=== PATIENT | male | born 1950 | race Caucasian/White ===

== ENCOUNTER 2023-05-02 06:19 | Day surgery (SDC) | payer MEDICARE, OTHER, SELFPAY ==
--- NOTE | 2023-04-30 12:11 | PTCARENOTE ---
Patients 04/07 EKG abnormal- reviewed by Dr. Houser- no additional interventions required
[2023-05-02] VITALS (8 sets, daily range): BP systolic 120–135; BP diastolic 64–72; BMI 29.2
[2023-05-02] MEDS: NORMOSOL-R 1000 IV (08:32)
[2023-05-02] MEDS: Pyridium 200 MG PO (12:24)
[2023-05-08 11:19] LABS: Stone Analysis Mass 12 mg
== END 2023-05-02 13:19 | disposition home or self-care (01) ==
LOC: SDS 06:19
PROVIDERS: Specialist; ATTENDING PHYSICIAN Specialist
DX: N20.2 Calculus of kidney with calculus of ureter (principal); Q62.10 Congenital occlusion of ureter, unspecified
CPT/HCPCS: 52356; 74018; 76000; 82365; C1894; C2617

== ENCOUNTER 2023-10-21 11:51 | Inpatient (IN) | payer MEDICARE, OTHER, SELFPAY ==
[2023-10-19 15:49] VITALS: BP 151/88
[2023-10-19 16:19] LABS: % Basophils 0.9 % (0-2); % Eosinophils 5.4 % (0-6); % Immature Granulocytes 0.5 % (0-0.5); % Lymphocytes 16.4 % (20.5-51.1); % Monocytes 13.4 % (1.7-9.3); % Neutrophils 63.4 % (42.2-75.2); Absolute Basophils 0.1 10^3/uL (0-0.2); Absolute Eosinophils 0.4 10^3/uL (0-0.7); Absolute Lymphocytes 1.1 10^3/uL (1.2-3.4); Absolute Monocytes 0.9 10^3/uL (0.1-0.6); Absolute Neutrophils 4.2 10^3/uL (1.4-6.5); Hematocrit 40.6 % (39.0-52.0); Hemoglobin 13.9 g/dL (13.0-18.0); Mean Corp Hgb Conc. 34.2 g/dL (33.0-37.0); Mean Corpuscular Hgb 30.7 pg (27.0-31.0); Mean Corpuscular Volume 89.6 fL (80.0-94.0); Mean Platelet Volume 9.6 fL (7.4-10.4); Nucleated Red Blood Cells % 0 % (-); Platelet Count 127 10^3/uL (130-400); Red Blood Cell Count 4.53 10^6/uL (4.70-6.10); Red Cell Dist. Width 12.1 % (11.5-14.5); White Blood Cell Count 6.6 10^3/uL (4.8-10.8)
[2023-10-19 16:26] LABS: ALT (SGPT) 64 U/L (0-50); APTT 31.1 Sec (23.4-35.0); AST (SGOT) 61 U/L (17-59); Albumin 4.1 g/dl (3.5-5.0); Alkaline Phosphatase 71 U/L (38-126); Blood Urea Nitrogen 21 mg/dl (9-20); Calcium 8.8 mg/dl (8.4-10.2); Carbon Dioxide 26 mmol/L (22-30); Chloride 106 mmol/L (98-107); Glucose 108 mg/dl (70-99); Potassium 4.4 mmol/L (3.5-5.1); Sodium 138 mmol/L (135-145); Total Bilirubin 1.4 mg/dl (0.2-1.3); Total Protein 7.3 g/dl (6.3-8.2); eGFR > 60.00
[2023-10-19 16:35] LABS: COVID-19 Antigen Negative (Negative)
[2023-10-19 16:38] LABS: NT-proBNP 846 pg/ml; Troponin I 0.026 ng/ml
--- NOTE | 2023-10-19 17:45 | ED.GENMED ---
History of Present Illness
<Dank West DO, Resident - Last Filed: 10/19/23 21:41>
General
Chief Complaint: Breathing Problem
Source: patient and significant other
Time Seen by Provider: 10/19/23 17:34
History of Present Illness
History of Present Illness:
Patient is a 73-year-old male the ED with 3 days of breath. He states this the shortness of breath lasted from Sunday until . He states he had checked his Apple Watch and his oxygenation dropped to 88%. He was having sensations that the
left side of his lungs were not feeling completely and that there was pain with deep inspiration. He reports no headaches, nausea, vomiting, diarrhea, chest pain, shortness of breath, abdominal pain, numbness or tingling currently. He woke up this
morning feeling good however his family doctor told him to come to the ER to rule out any pulmonary embolism.
Past History
<Dank West DO, Resident - Last Filed: 10/19/23 21:41>
Social History
Tobacco: Non-smoker
Personal:
Employment: Employed
Review of Systems
<Dank West DO, Resident - Last Filed: 10/19/23 21:41>
Review of Systems
Constitutional: Reports no symptoms
EENT: Reports no symptoms
Respiratory: Reports trouble breathing (now resolved)
Cardiac: Reports no symptoms
ABD/GI: Reports no symptoms
: Reports no symptoms
Musculoskeletal: Reports other (mild shoulder and left side pain)
Skin: Reports no symptoms
Neurological: Denies no symptoms
Endocrine: Reports no symptoms
Hematologic/Lymphatic: Reports no symptoms
Psychiatric: Reports no symptoms
Phy Exam
<Dank West DO, Resident - Last Filed: 10/19/23 21:41>
General Physical Exam
General Presentation: well appearing and no apparent distress
General age: appears stated age
General Skin: warm and dry
General Habitus: normal
General Mental: alert
General Hydration: appears well hydrated
Cardiovascular Exam
Cardiovascular Exam: regular rate/rhythm, no edema, no gallop, no JVD, no murmur and normal peripheral pulses
Pulmonary Exam
Pulmonary Exam: lungs clear, no respiratory distress, no rales, chest non tender, no crackles, no rhonchi, no stridor, no wheezing and no cough
Gastrointestinal Exam
Gastrointestinal Exam: normal bowel sounds, non tender, soft and non distended
Musculoskeletal Exam
Musculoskeletal Exam: full ROM
Skin Exam
Skin Exam: normal color and warm/dry
Scores
<Dank West DO, Resident - Last Filed: 10/19/23 21:41>
Heart Failure Risk
Heart Failure Risk Score: Not Applicable
Course
<Dank West DO, Resident - Last Filed: 10/19/23 21:41>
Orders/Labs/Results
Orders:
Orders
10/19/23 Dinner
Regular
10/19/23 15:55
ECG [Electrocardiogram (*1)] Urgent
Reason for Study: Shortness of Breath
Other Reason for Exam: Pleuritic chest pain
10/19/23 15:56
EKG- Treatment ONCE
10/19/23 16:08
COVID-19 Antigen Urgent
Source: Nasal Swab
Complete Blood Count/With Diff Urgent
Comprehensive Metabolic Panel Urgent
NT-proBNP Urgent
PT/INR [Prothrombin Time] Urgent
PTT Urgent
Troponin I Urgent
10/19/23 17:57
CT Chest Pe Study Urgent
Comment:
Reason For Exam: chest pain
10/19/23 19:27
Heparin 10,000 units IV NOW STA
10/19/23 19:[address] Non Medication Order As Directed
Physician Order: PTT 6 hours after initial start of Heparin infusion
Above order entered?: Yes
10/19/23 19:30
Heparin 61368 Units/250 ml 25,000 units in 250 ml IV PER PROTOCOL
Weight to be used for heparin protocol in kilograms (kg):: 93
Protocol:: DVT/PE
PTT Goal Range to be used:: PTT 73 to 111 seconds
Order type:: Initial
INITIAL Infusion Dose (UNITS/KG/hr) & then follow protocol:: 18 units/kg/hr
Infusion Dose in UNITS/hr & then follow protocol (UNITS/hr):: 1,700
INFUSION RATE in mL/hr & then follow protocol (mL/hr):: 17
For DVT/PE algorithm, re-bolus for low PTT?: Yes
PTT less than or equal to 64 seconds:: Re-bolus 80 units/kg (max 10,000units). Increase by 400 units/hr
(+ 4mL/hr)
PTT 64.1 to 72.9 seconds:: Re-bolus 40 units/kg (max 5,000 units). Increase by 200 units/hr
(+ 2mL/hr)
PTT 73 to 111 seconds:: Target Range. No change in rate.
PTT 111.1 to 130.9 seconds:: Decrease rate by 200 units/hr (- 2 mL/hr)
PTT 131 to 199.9 seconds:: HOLD for 1 hr. Then decrease by 300 units/hr (- 3mL/hr)
PTT greater than or equal to 200 seconds:: HOLD for 2 hrs & Notify Provider. Then decrease by 400 units/hr
(- 4mL/hr)
Lab follow-up:: Each change, PTT q6h until 2 consecutive are therapeutic. Then
PTT daily.
10/19/23 19:51
Heparin 7,400 units IV PRN PRN
10/19/23 19:52
Heparin 3,700 units IV PRN PRN
10/19/23 20:12
Admit/Transfer Patient As Directed
Co-Sign Provider:
Level of Care: Observation services
Assign to:: Telemetry
Physician / Group: rogerio
Diagnosis: pulmonary embolism
Reason for Telemetry: Arrhythmia
Date to Stop Telemetry: 10/22/23
Time to Stop Telemetry: 11:00
10/19/23 20:13
Code Status As Directed
Resuscitation Status: Full Code
10/19/23 21:17
diphenhydramine-acetaminophen [Tylenol PM Extra Strength] 1 tablet PO HSPRN PRN
10/19/23 21:17
Echo 2D MMode Color/Doppler Routine
Reason for Study: RV strain
VTE Contraindication Routine
VTE Mechanical Device Contraindication: Medical Contraindication
Pharmocologic Contraindication: Medical Contraindication
Heparin Protocol- PTT Orders As Directed
PTT per Heparin protocol: -Obtain CBC and baseline PTT - if not already collected.
-Obtain PTT 6 hours from start of infusion. Then, every 6 hours until 2 consecutive
PTT's are therapeutic. Then, PTT Daily.
-With each rate change, obtain PTT every 6 hours until 2 consecutive PTT's are
therapeutic. Then, PTT Daily.
Activity As Directed
Activity Level: As Tolerated
Notify MD As Directed
Notify physician if: PTT is greater than or equal to 200.
Vital Signs As Directed
Frequency: Per unit guidelines
Venous Doppler Lwr Ext Bilat [US Periph Venous LOWER Ext Bebeto] Routine
Comment:
Reason For Exam: DVT
10/19/23 21:28
Troponin I Q6H
10/19/23 22:00
Atorvastatin [Lipitor] 10 mg PO HS
10/20/23 02:10
PTT Urgent
10/20/23 03:17
Troponin I Q6H
10/20/23 06:00
Complete Blood Count/No Diff IN AM
Comprehensive Metabolic Panel IN AM
10/20/23 08:00
Ascorbic Acid [Vitamin C] 500 mg PO DAILY
omega-3 fatty acids-fish oil 1 ea PO DAILY
10/20/23 09:17
Troponin I Q6H
10/21/23 06:00
Complete Blood Count/No Diff Q2D
Comment: notify provider: Platelet count < 130,000 or decrease by 50% from baseline
10/22/23 11:00
DC Protocol for Telemetry ONCE
10/23/23 06:00
Complete Blood Count/No Diff Q2D
Comment: notify provider: Platelet count < 130,000 or decrease by 50% from baseline
10/25/23 06:00
Complete Blood Count/No Diff Q2D
Comment: notify provider: Platelet count < 130,000 or decrease by 50% from baseline
10/27/23 06:00
Complete Blood Count/No Diff Q2D
Comment: notify provider: Platelet count < 130,000 or decrease by 50% from baseline
10/29/23 06:00
Complete Blood Count/No Diff Q2D
Comment: notify provider: Platelet count < 130,000 or decrease by 50% from baseline
10/31/23 06:00
Complete Blood Count/No Diff Q2D
Comment: notify provider: Platelet count < 130,000 or decrease by 50% from baseline
11/02/23 06:00
Complete Blood Count/No Diff Q2D
Comment: notify provider: Platelet count < 130,000 or decrease by 50% from baseline
11/04/23 06:00
Complete Blood Count/No Diff Q2D
Comment: notify provider: Platelet count < 130,000 or decrease by 50% from baseline
Abnormal Lab Results
10/19/23
16:08
RBC 4.53 L 10^6/uL
(4.70-6.10)
Plt Count 127 L 10^3/uL
(130-400)
Absolute Lymphs (auto) 1.1 L 10^3/uL
(1.2-3.4)
Absolute Monos (auto) 0.9 H 10^3/uL
(0.1-0.6)
Lymphocytes % 16.4 L %
(20.5-51.1)
Monocytes % 13.4 H %
(1.7-9.3)
PT 15.0 H Sec
(11.4-14.6)
BUN 21 H mg/dl
(9-20)
Glucose 108 H mg/dl
(70-99)
Total Bilirubin 1.4 H mg/dl
(0.2-1.3)
AST 61 H U/L
(17-59)
ALT 64 H U/L
(0-50)
10/19/23 16:08
10/19/23 16:08
Vital Signs
Initial and Last Documented VS:
Initial Vital Signs
Temp Pulse Resp BP Pulse Ox
98.9 F 50 20 151/88 98
10/19/23 15:49 10/19/23 15:49 10/19/23 15:49 10/19/23 15:49 10/19/23 15:49
Last Documented Vital Signs
Temp Pulse Resp BP Pulse Ox
98.9 F 51 22 149/79 95
10/19/23 15:49 10/19/23 20:00 10/19/23 20:00 10/19/23 19:46 10/19/23 19:46
<Eugenio Herrera, DO - Last Filed: 10/19/23 18:25>
Orders/Labs/Results
Orders:
Orders
10/19/23 Dinner
Regular
10/19/23 15:55
ECG [Electrocardiogram (*1)] Urgent
Reason for Study: Shortness of Breath
Other Reason for Exam: Pleuritic chest pain
10/19/23 15:56
EKG- Treatment ONCE
10/19/23 16:08
COVID-19 Antigen Urgent
Source: Nasal Swab
Complete Blood Count/With Diff Urgent
Comprehensive Metabolic Panel Urgent
NT-proBNP Urgent
PT/INR [Prothrombin Time] Urgent
PTT Urgent
Troponin I Urgent
10/19/23 17:57
CT Chest Pe Study Urgent
Comment:
Reason For Exam: chest pain
10/19/23 19:27
Heparin 10,000 units IV NOW STA
10/19/23 19:[address] Non Medication Order As Directed
Physician Order: PTT 6 hours after initial start of Heparin infusion
Above order entered?: Yes
10/19/23 19:30
Heparin 26485 Units/250 ml 25,000 units in 250 ml IV PER PROTOCOL
Weight to be used for heparin protocol in kilograms (kg):: 93
Protocol:: DVT/PE
PTT Goal Range to be used:: PTT 73 to 111 seconds
Order type:: Initial
INITIAL Infusion Dose (UNITS/KG/hr) & then follow protocol:: 18 units/kg/hr
Infusion Dose in UNITS/hr & then follow protocol (UNITS/hr):: 1,700
INFUSION RATE in mL/hr & then follow protocol (mL/hr):: 17
For DVT/PE algorithm, re-bolus for low PTT?: Yes
PTT less than or equal to 64 seconds:: Re-bolus 80 units/kg (max 10,000units). Increase by 400 units/hr
(+ 4mL/hr)
PTT 64.1 to 72.9 seconds:: Re-bolus 40 units/kg (max 5,000 units). Increase by 200 units/hr
(+ 2mL/hr)
PTT 73 to 111 seconds:: Target Range. No change in rate.
PTT 111.1 to 130.9 seconds:: Decrease rate by 200 units/hr (- 2 mL/hr)
PTT 131 to 199.9 seconds:: HOLD for 1 hr. Then decrease by 300 units/hr (- 3mL/hr)
PTT greater than or equal to 200 seconds:: HOLD for 2 hrs & Notify Provider. Then decrease by 400 units/hr
(- 4mL/hr)
Lab follow-up:: Each change, PTT q6h until 2 consecutive are therapeutic. Then
PTT daily.
10/19/23 19:51
Heparin 7,400 units IV PRN PRN
10/19/23 19:52
Heparin 3,700 units IV PRN PRN
10/19/23 20:12
Admit/Transfer Patient As Directed
Co-Sign Provider:
Level of Care: Observation services
Assign to:: Telemetry
Physician / Group: rogerio
Diagnosis: pulmonary embolism
Reason for Telemetry: Arrhythmia
Date to Stop Telemetry: 10/22/23
Time to Stop Telemetry: 11:00
10/19/23 20:13
Code Status As Directed
Resuscitation Status: Full Code
10/19/23 21:17
diphenhydramine-acetaminophen [Tylenol PM Extra Strength] 1 tablet PO HSPRN PRN
10/19/23 21:17
Echo 2D MMode Color/Doppler Routine
Reason for Study: RV strain
VTE Contraindication Routine
VTE Mechanical Device Contraindication: Medical Contraindication
Pharmocologic Contraindication: Medical Contraindication
Heparin Protocol- PTT Orders As Directed
PTT per Heparin protocol: -Obtain CBC and baseline PTT - if not already collected.
-Obtain PTT 6 hours from start of infusion. Then, every 6 hours until 2 consecutive
PTT's are therapeutic. Then, PTT Daily.
-With each rate change, obtain PTT every 6 hours until 2 consecutive PTT's are
therapeutic. Then, PTT Daily.
Activity As Directed
Activity Level: As Tolerated
Notify MD As Directed
Notify physician if: PTT is greater than or equal to 200.
Vital Signs As Directed
Frequency: Per unit guidelines
Venous Doppler Lwr Ext Bilat [US Periph Venous LOWER Ext Bebeto] Routine
Comment:
Reason For Exam: DVT
10/19/23 21:28
Troponin I Q6H
10/19/23 22:00
Atorvastatin [Lipitor] 10 mg PO HS
10/20/23 02:10
PTT Urgent
10/20/23 03:17
Troponin I Q6H
10/20/23 06:00
Complete Blood Count/No Diff IN AM
Comprehensive Metabolic Panel IN AM
10/20/23 08:00
Ascorbic Acid [Vitamin C] 500 mg PO DAILY
omega-3 fatty acids-fish oil 1 ea PO DAILY
10/20/23 09:17
Troponin I Q6H
10/21/23 06:00
Complete Blood Count/No Diff Q2D
Comment: notify provider: Platelet count < 130,000 or decrease by 50% from baseline
10/22/23 11:00
DC Protocol for Telemetry ONCE
10/23/23 06:00
Complete Blood Count/No Diff Q2D
Comment: notify provider: Platelet count < 130,000 or decrease by 50% from baseline
10/25/23 06:00
Complete Blood Count/No Diff Q2D
Comment: notify provider: Platelet count < 130,000 or decrease by 50% from baseline
10/27/23 06:00
Complete Blood Count/No Diff Q2D
Comment: notify provider: Platelet count < 130,000 or decrease by 50% from baseline
10/29/23 06:00
Complete Blood Count/No Diff Q2D
Comment: notify provider: Platelet count < 130,000 or decrease by 50% from baseline
10/31/23 06:00
Complete Blood Count/No Diff Q2D
Comment: notify provider: Platelet count < 130,000 or decrease by 50% from baseline
11/02/23 06:00
Complete Blood Count/No Diff Q2D
Comment: notify provider: Platelet count < 130,000 or decrease by 50% from baseline
11/04/23 06:00
Complete Blood Count/No Diff Q2D
Comment: notify provider: Platelet count < 130,000 or decrease by 50% from baseline
Abnormal Lab Results
10/19/23
16:08
RBC 4.53 L 10^6/uL
(4.70-6.10)
Plt Count 127 L 10^3/uL
(130-400)
Absolute Lymphs (auto) 1.1 L 10^3/uL
(1.2-3.4)
Absolute Monos (auto) 0.9 H 10^3/uL
(0.1-0.6)
Lymphocytes % 16.4 L %
(20.5-51.1)
Monocytes % 13.4 H %
(1.7-9.3)
PT 15.0 H Sec
(11.4-14.6)
BUN 21 H mg/dl
(9-20)
Glucose 108 H mg/dl
(70-99)
Total Bilirubin 1.4 H mg/dl
(0.2-1.3)
AST 61 H U/L
(17-59)
ALT 64 H U/L
(0-50)
10/19/23 16:08
10/19/23 16:08
Vital Signs
Initial and Last Documented VS:
Initial Vital Signs
Temp Pulse Resp BP Pulse Ox
98.9 F 50 20 151/88 98
10/19/23 15:49 10/19/23 15:49 10/19/23 15:49 10/19/23 15:49 10/19/23 15:49
Last Documented Vital Signs
Temp Pulse Resp BP Pulse Ox
98.9 F 51 22 149/79 95
10/19/23 15:49 10/19/23 20:00 10/19/23 20:00 10/19/23 19:46 10/19/23 19:46
<Dank West DO, Resident - Last Filed: 10/19/23 21:41>
MDM/Problems Addressed
Differential Diagnosis Includes:
Pulmonary embolism
MDM/Problems Addressed:
Patient is a 73-year-old male presenting to the ED with 3 days of shortness of breath and pain with deep inspiration. Today he felt he had no symptoms but CT PE study showed left peripheral pulmonary embolism. He was ordered heparin in the
emergency room and patient was admitted to hospital.
Chronic conditions affecting care:
N/A
Acute Exacerbation and/or Progression of Chronic Illness:
N/A
<Dank West DO, Resident - Last Filed: 10/19/23 21:41>
*Pulse Oximetry
Patient hypoxic: no
*EKG
Interpreted by ED Provider?: Yes
EKG Intrepretation Date: 10/19/23
Interpretation: abnormal
Comparison EKG: changes noted
Rate: bradycardiac
Rhythm: sinus
[place]: normal axis
Interval: first degree heart block
*Critical Care Note
Total Time (30-74mins, 75-104mins- exclusive of procedures): Not Applicable
ED Attending Note
<Dank West DO, Resident - Last Filed: 10/19/23 21:41>
-
Portions of this chart may have been created with voice recognition software.� Occasional wrong word or��sound alike� substitutions may have occurred due to the inherent limitations of voice recognition software.
<Eugenio Herrera DO - Last Filed: 10/19/23 18:25>
ED Attending Note
Patient seen and examined by attending physician: Yes
I performed the substantive portion of visit, reviewed & personally made and approve the management plan that is documented in note by myself or KYLAH.: Yes
ED Attending Note:
I have seen and evaluated the patient with a [id number] encounter. I have spoken to the resident and involved in the medical history, the physical exam, medical decision making.
Evaluation and management service: agree unless noted differently below.
Results interpretation: agree unless noted differently below.
Focused HPI: 73-year-old male presenting with pleuritic chest pain with deep inspiration. He talk to his doctor and was sent in for rule out PE
Physical exam: Sitting bed comfortably. Symptoms worsening since upright. No leg edema. Lungs clear
Medical Decision Making: Given his history and symptoms, will obtain CT to rule out PE. Otherwise, discussed pleuritic pain. Troponin negative
Discharge Plan
Departure
Patient Disposition: Admit
Date of Disposition: 10/19/23
Time of Disposition: 19:35
Presentation/result/management discussed w/ accepting MD/DO: Hospitalist
Patient with high blood pressure during this ER visit?: Yes
Condition: Good
Discharge Problem:
Pulmonary embolism
Interventions
Interventions:
*Risk Screen - Suicide Last Done: 10/19/23 20:05
*General Assessment Last Done: 10/19/23 17:56
*Neglect/Abuse Screening Last Done: 10/19/23 17:56
ED- Fall Risk Assessment Last Done: 10/19/23 17:56
*ED COVID-19 Vaccine History Last Done: 10/19/23 20:55
*Nursing Disposition Last Done: 10/19/23 20:55
ED- Cardiac Assessment Last Done: 10/19/23 17:56
ED- Pulmonary Assessment Last Done: 10/19/23 17:56
Discharge Date and Time
Discharge Date/Time: 10/19/23 20:56
[2023-10-19 17:53] VITALS: BP 153/87
[2023-10-19 18:00] VITALS: BP 129/115
[2023-10-19] MEDS: HEPARIN 10000 UNITS IV (19:43)
[2023-10-19 19:46] VITALS: BP 149/79
[2023-10-19] MEDS: HEPARIN 25000 UNITS/250 ML IV (20:08)
--- NOTE | 2023-10-19 20:20 | HPS.HSE ---
Family Physician
-
Family Physician: Berry Agudelo
Chief Complaint
-
shortness of breath
History of Present Illness
73-year-old male past medical history of osteoarthritis, hyperlipidemia, sarcoidosis, first-degree AV block, presenting with 3 days of shortness of breath. He was noted to be hypoxic to 88% on his Apple Watch. He was having chest pain with deep
inspiration. He denies headache, nausea vomiting, diarrhea, abdominal pain, numbness or tingling. Denies dizziness. His primary care physician told him to come to the emergency room to evaluate for pulmonary embolism.
He denies any lower extremity pain or swelling. He denies any cough. He denies any fevers or chills. He does go on long car drives recently to [place]. He is not sedentary at baseline.
His brother had a history of blood clot in his leg 15 years ago.
He denies smoking. He drinks alcohol occasionally.
Medical History
Past Medical History
Past Medical History: Reports Other (osteoarthritis, hyperlipidemia, sarcoidosis, first-degree AV block,)
Past Surgical History: Reports None
Social History
Tobacco: Non-smoker
Alcohol: Occasional
Drug: None
Family History
Family History: Not pertinent
Allergies / Home Medications
Allergies reflects when Allergies were last updated in [facility].
Home Medications with original date entered in [facility]
Allergy/Medication List:
Allergies
Allergy/AdvReac Type Severity Reaction Status Date / Time
No Known Allergies Allergy Verified 10/19/23 15:54
Home Medications
ascorbic acid (vitamin C) 500 mg tablet (Vitamin C) 500 mg PO DAILY 07/28/14
omega-3 fatty acids-fish oil 300 mg-1,000 mg capsule 1 ea PO DAILY 07/28/14
simvastatin 20 mg tablet 20 mg PO HS 07/28/14
aspirin 81 mg chewable tablet 81 mg PO DAILY 04/30/23
diphenhydramine 25 mg-acetaminophen 500 mg tablet (Tylenol PM Extra Strength) 1 tab PO HSPRN PRN sleep 10/19/23
ibuprofen 200 mg tablet (Advil) 200 mg PO BIDPRN PRN mild pain 10/19/23
Review of Systems
-
History Source: Patient
A 12 point ROS was completed and negative except as noted: Yes
Constitutional: Reports No Symptoms
EENT: Reports No Symptoms
Respiratory: Reports See HPI
Cardiac: Reports No Symptoms
Abdomen/GI: Reports No Symptoms
: Reports No Symptoms
Musculoskeletal: Reports No Symptoms
Skin: Reports No Symptoms
Neurological: Reports No Symptoms
Endocrine: Reports No Symptoms
Hematologic/Lymphatic: Reports No Symptoms
Psych: Reports No Symptoms
Physical Exam
Vital Signs
Vital Signs
Temp Pulse Resp BP Pulse Ox
98.9 F 51 22 149/79 95
10/19/23 15:49 10/19/23 20:00 10/19/23 20:00 10/19/23 19:46 10/19/23 19:46
Physical Exam
General: Well Developed, Well Nourished and No Apparent Distress
HEENT: NormoCephalic, Moist mucous membranes and Atraumatic
Respiratory: Clear
Cardiac: S1/S2 and Regular Rhythm; No Murmur or Rub
GI: Soft, Non Tender, Non Distended and Normal Bowel Sounds; No Organomegaly
Rectal: Deferred by Provider
Musculoskeletal: No Clubbing, No Cyanosis and No Edema
Skin: No Rash
Neuro: Nonfocal/grossly intact
Laboratory Results
-
10/19/23 16:08
10/19/23 16:08
Laboratory Results
PT 15.0 Sec (11.4-14.6) H 10/19/23 16:08
INR 1.20 10/19/23 16:08
APTT 31.1 Sec (23.4-35.0) 10/19/23 16:08
Total Bilirubin 1.4 mg/dl (0.2-1.3) H 10/19/23 16:08
AST 61 U/L (17-59) H 10/19/23 16:08
ALT 64 U/L (0-50) H 10/19/23 16:08
Alkaline Phosphatase 71 U/L (38-126) 10/19/23 16:08
Troponin I 0.026 ng/ml 10/19/23 16:08
Data Reviewed
-
Lab Data: Labs Reviewed by me
Old Records: Reviewed
Impression/Plan
-
IMPRESSION:
PLAN:
# Large volume pulmonary embolism of right main pulmonary artery with RV strain
-possibly provoked from long car drives
-EKG shows right bundle branch block
-Heparin drip, hold aspirin
-Check bilateral venous ultrasound
-Trend troponins
-Check echo
-Pulmonary consulted
-Hold ibuprofen
# 3.2 cm part solid mass in the posterior left lower lobe likely pulmonary infarct
-Patient having pain in that area so likely pulmonary infarct
-No symptoms of pneumonia
# Transaminitis
-Outpatient follow-up
History of sarcoidosis
Osteoarthritis
-Hold ibuprofen
Hyperlipidemia
-Continue statin
History of first-degree AV block
Full code
DVT prophylaxis�heparin drip
Regular diet
[2023-10-19 21:00] VITALS: BP 157/88; BMI 28.6
--- NOTE | 2023-10-19 21:00 | PTCARENOTE ---
pt transferred from ED to 3W via stretcher. Pt independent from stretcher to bed. Pt on heparin Gtt, vitals obtained, oriented to room and call rosenbaum within reach. Pt AAOx3, rings appropriately. Will continue to monitor.
[2023-10-19 21:57] LABS: Troponin I 0.031 ng/ml
[2023-10-19] MEDS: LIPITOR 10 MG PO (22:24)
[2023-10-19 23:00] VITALS: BP 133/69
[2023-10-20 03:00] VITALS: BP 153/78
[2023-10-20 03:37] LABS: Troponin I 0.028 ng/ml
[2023-10-20 03:42] LABS: APTT > 200 Sec (23.4-35.0)
--- NOTE | 2023-10-20 03:51 | PTCARENOTE ---
Pt Ptt came back >than 200. RN stopped heparin from 03:45-05:45, will decrease rate by 400 once restarted at 05:45. ДМИТРИЙ Larkin notified.
--- NOTE | 2023-10-20 05:55 | PTCARENOTE ---
Pt having bradycardic episodes on TELE, asymptomatic. [employer]IL [employer] Anabel Larkin notified, continue to monitor.
[2023-10-20 07:00] VITALS: BP 146/81
--- NOTE | 2023-10-20 08:26 | W.PN.HOSP.TC ---
Today's Communication/Plan
-
see bold
Assessment / Plan
Assessment / Plan
Gen: NAD, AAOx3.
Eyes: EOMI, PERRLA, no scleral icterus.
Neck: supple.
CV: RRR, +S1/S2, no m/r/g.
Resp: CTAB, no rales, wheezes, or rhonchi.
Abd: +BS, soft, NT, ND
Skin: No rashes.
Neuro: CN 2-12 intact, non-focal.
Psych: Normal mood and affect.
CTA chest: Large volume pulmonary embolism, most pronounced involving the peripheral right main pulmonary artery, with near complete vessel lumen occlusion. Right ventricular heart strain with RV to LV ratio of 1.4, and mild reflux of contrast
material into the inferior vena cava. 3.2 cm part solid 'mass' in the posterolateral left lower lobe with associated small left pleural effusion. Nonspecific. Possibly round pneumonia, or perhaps opacity related to pulmonary infarct. Limited
evaluation of the subsegmental pulmonary vessels in the left lower lobe secondary to mild motion degradation. Moderate to large volume of confluent partially calcified lymphoid tissue/adenopathy in the hilar regions, bilaterally, as well as within
the mediastinum. Possible considerations include prior granulomatous disease or treated lymphoma.
Acute hypoxemic respiratory insufficiency due to acute large volume pulmonary embolism of right main pulmonary artery with RV strain:
-possibly provoked from long car drives
-EKG showed right bundle branch block
-cont Heparin drip, hold aspirin
-Check bilateral LE venous ultrasound
-troponins NEG x 3
-Check echo
-Pulmonary consulted
-Holding ibuprofen
3.2 cm part solid mass in the posterior left lower lobe:
-Patient having pain in that area so likely pulmonary infarct
-No symptoms of pneumonia
Other problems:
Transaminitis, mild, outpt f/u
h/o sarcoidosis
Osteoarthritis: Holding ibuprofen
Hyperlipidemia: Continue statin
h/o first-degree AV block
Pt's updated at bedside. RN updated.
FULL/heparin drip
Total time spent on today's encounter was 50 minutes which included time spent in counseling the patient/family regarding diagnosis and treatment plan as listed above, goals of care, and symptom management. Case was discussed with nursing staff,
specialists, and care coordinators/case management. All labs and imaging personally reviewed by me. Remainder the time spent in detailed review of previous records, lab data, imaging, and other medical provider documentation.
Anticipated Discharge: > 48 hours
Subjective/Interval History
-
Date of Service: October 20, 2023
No new complaints.
Objective Data
-
Labs:
Laboratory Results
10/20/23 10/20/23 10/20/23
06:00 11:48
WBC Pending
Hgb Pending
Hct Pending
Plt Count Pending
APTT > 200 H* Pending
Sodium Pending
Potassium Pending
Chloride Pending
Carbon Dioxide Pending
BUN Pending
Creatinine Pending
Glucose Pending
Calcium Pending
Total Bilirubin Pending
AST Pending
ALT Pending
Alkaline Phosphatase Pending
Vital Signs:
Vital Signs
Temp Pulse Resp BP Pulse Ox
98.0 F 46 18 146/81 96
10/20/23 07:00 10/20/23 07:00 10/20/23 07:00 10/20/23 07:00 10/20/23 07:00
[2023-10-20] MEDS: VITAMIN C 500 MG PO (08:32)
[2023-10-20 10:33] LABS: Hematocrit 39.8 % (39.0-52.0); Hemoglobin 13.7 g/dL (13.0-18.0); Mean Corp Hgb Conc. 34.4 g/dL (33.0-37.0); Mean Corpuscular Hgb 30.9 pg (27.0-31.0); Mean Corpuscular Volume 89.6 fL (80.0-94.0); Mean Platelet Volume 10.4 fL (7.4-10.4); Platelet Count 138 10^3/uL (130-400); Red Blood Cell Count 4.44 10^6/uL (4.70-6.10); Red Cell Dist. Width 12.1 % (11.5-14.5); White Blood Cell Count 6.2 10^3/uL (4.8-10.8)
[2023-10-20 10:42] LABS: Troponin I 0.022 ng/ml
[2023-10-20 10:45] LABS: ALT (SGPT) 67 U/L (0-50); AST (SGOT) 57 U/L (17-59); Alkaline Phosphatase 82 U/L (38-126); Blood Urea Nitrogen 20 mg/dl (9-20); Calcium 8.9 mg/dl (8.4-10.2); Carbon Dioxide 27 mmol/L (22-30); Chloride 103 mmol/L (98-107); Estimated Creatinine Clearance 66 ml/min; Glucose 126 mg/dl (70-99); Potassium 4.1 mmol/L (3.5-5.1); Sodium 137 mmol/L (135-145); Total Bilirubin 1.1 mg/dl (0.2-1.3); Total Protein 7.2 g/dl (6.3-8.2); eGFR > 60.00
[2023-10-20 11:00] VITALS: BP 141/81
--- NOTE | 2023-10-20 11:04 | CON.INTV ---
Consultation
Consultation Request
Date/Time Consultation Requested: 10/20/2023-8 AM
Date/Time Consultation Performed: 10/20/2023-9 AM
Requesting Provider: Hospitalist
Performing Provider: Dr. Graham
Reason for Consultation: Dyspnea on exertion/pulmonary embolism
Medical History
-
Chief Complaint: Dyspnea on exertion
History of Present Illness:
73-year-old male who is very active with a history of hyperlipidemia, sarcoidosis, osteoarthritis who recently had a long car drive from [place] and noticed increased dyspnea on exertion 3 days prior to admission noted to have hypoxemia on
Apple Watch and advised by primary to come to the emergency room where he was noted to have a pulmonary embolism-pulmonary consulted for pulmonary embolism 10/20/2023. At rest he is improved. His pleurisy on the left side has resolved. He denies
any shortness of breath at rest, chest pain, chest tightness, pleurisy, productive cough, mopped assist, abdominal pain, nausea, vomiting, weakness or increased leg swelling.
Past Medical History
Past Medical History: None (Hyperlipidemia. Sarcoidosis. Osteoarthritis. First-degree AV block. Specifically no history of CAD, pulmonary, renal, gastrointestinal or neurologic disease)
Social History
Tobacco: Non-smoker
Personal:
Living: With Family
Occupational Exposures: No known asbestos exposure
Environmental Exposures: No known tuberculosis exposure
Family History
Family History: Other (Brother-probable provoked pulmonary embolism 15 years ago-long car ride from [place].)
Allergies / Home Medications
Allergies
Allergy/AdvReac Type Severity Reaction Status Date / Time
No Known Allergies Allergy Verified 10/19/23 15:54
Home Medications
�Medication �Instructions �Recorded �Confirmed �Last Taken �Type
ascorbic acid (vitamin C) 500 mg 500 mg PO DAILY 07/28/14 10/19/23 10/19/23 History
tablet (Vitamin C)
omega-3 fatty acids-fish oil 300 1 ea PO DAILY 07/28/14 10/19/23 10/19/23 History
mg-1,000 mg capsule
simvastatin 20 mg tablet 20 mg PO HS 07/28/14 10/19/23 10/18/23 History
aspirin 81 mg chewable tablet 81 mg PO DAILY 04/30/23 10/19/23 10/19/23 History
diphenhydramine 25 1 tab PO HSPRN PRN sleep 10/19/23 10/19/23 10/18/23 History
mg-acetaminophen 500 mg tablet
(Tylenol PM Extra Strength)
ibuprofen 200 mg tablet (Advil) 200 mg PO BIDPRN PRN mild pain 10/19/23 10/19/23 10/16/23 History
Review of Systems
-
Unable to Obtain full review of systems at this time due to: Other (Per HPI)
Vitals / Labs / Diagnostic Testing
Vital Signs
Temp Pulse Resp BP Pulse Ox
98.0 F 46 18 146/81 96
10/20/23 07:00 10/20/23 07:00 10/20/23 07:00 10/20/23 07:00 10/20/23 07:00
Lab Data
10/20/23 08:56
10/20/23 08:56
Laboratory Results
10/19/23 10/20/23
16:08 02:27
PT 15.0 H
INR 1.20
APTT 31.1 > 200 H*
Diagnostic Testing:
Physical Exam
-
Exam:
Well-nourished and well-developed in no apparent distress
HEENT-atraumatic, normocephalic
Neck-supple, no JVD, no bruit
Heart-regular rate and rhythm-no murmurs, rubs or gallops, no increased P2 or RV heave
Chest was clear without wheezes or crackles
Back without tenderness
Abdomen-soft, nontender, nondistended, no hepatosplenomegaly
Extremities-no cyanosis, clubbing, edema and good peripheral pulses, negative Homans' sign
Integument-intact, no rashes, lesions or ecchymosis
Neurology-alert and oriented, nonfocal motor and sensory exam
Assessment
-
73-year-old male who is very active with a history of hyperlipidemia, sarcoidosis, osteoarthritis who recently had a long car drive from [place] and noticed increased dyspnea on exertion 3 days prior to admission noted to have hypoxemia on
Apple Watch and advised by primary to come to the emergency room where he was noted to have a pulmonary embolism-pulmonary consulted for pulmonary embolism 10/20/2023.
Acute pulmonary emboli with moderate to large volume clot burden with right ventricular strain
Suspect provoked but family history
[id number] III high risk
Left lower lobe lung mass suspect pulmonary infarct-3.2 cm
Transaminitis
Mild hyperglycemia
Conditions present prior to admission:
Hyperlipidemia.
Sarcoidosis.
Osteoarthritis.
First-degree AV block.
Specifically no history of CAD, pulmonary, renal, gastrointestinal or neurologic disease
Plan
Patient will be admitted to telemetry bed for close observation
Supplemental oxygen as needed
Aspiration precautions
Incentive spirometry
Nebulizers if needed-currently not bronchospastic
CT chest personally reviewed-summarized below
Check echocardiogram
Lower extremity ultrasound 10/20/2023-acute right lower extremity DVT and chronic left lower extremity nonocclusive DVT
Will likely recommend hypercoagulable workup with family history [id number] likely provoked pulmonary embolism
Full PESI summarized above
Heparin drip or Lovenox 1 mg/kg every 12 hours
Convert to oral anticoagulant in the next 24 hours and treat for minimum of 3-6 months
Benefits and risks of thrombolytics therapy were reviewed
Patient has no tachycardia and no hypotension-currently risks of aggressive thrombolytic therapy outweigh benefits
Bedrest �24 hours
DVT prophylaxis-on full anticoagulation
Early nutrition
Early mobilization
Reviewed with at the bedside
Outpatient pulmonary [id number] PFTs, repeat lower extremity ultrasound/CT chest and probable hypercoagulable workup
Outpatient appropriate malignancy screening including colonoscopy and prostate exam
Critical care statement: A total of 50 minutes of critical care time was provided for this patient today. This includes management of unstable vital signs, evaluation for thrombolytic therapy, management of large pulmonary embolism, evaluation of
the patient at bedside, reviewing the patient's pertinent medical records including radiographs, microbiology, laboratory evaluations, and discussion with primary team, consultants, pharmacy, and critical care nursing.
Diagnostic data:
Chest x-ray 07/28/2014-bilateral hilar lymphadenopathy and right paratracheal lymphadenopathy
CT chest 10/19/2023-large volume pulmonary embolism most pronounced peripheral right main pulmonary artery, right ventricular strain, 3.2 cm part solid consolidation left lower lobe associated with small left pleural effusion suspected related to
pulmonary infarct, moderate to large volume calcified lymphoid tissue/adenopathy
Lower extremity ultrasound 10/20/2023-acute right lower extremity DVT, chronic left lower extremity nonocclusive DVT
Echocardiogram 08/11/2014-EF 55-60%, mild mitral regurgitation, PA systolic 28-33, mildly dilated aortic root measuring 4.0 cm
Data Reviewed
-
EKG: Report reviewed by me
Radiology: Image personally visualized and interpreted and Report reviewed by me
CT Scan: Image personally visualized and interpreted and Report reviewed by me
Medical Tests (Nuc Med, Echo etc): Report reviewed by me
Labs: Labs reviewed by me
Old Records: Reviewed
Total Time Spent with Patient (in minutes): 50
[2023-10-20 12:11] LABS: APTT 103.2 Sec (23.4-35.0)
--- NOTE | 2023-10-20 14:48 | CM ---
Reviewed chart, met with patient to obtain information for assessment, however patient was asleep and would not wake up. Placed a call to patient's , Lloyd, who provided information for assessment.
Patient's stated that patient lives with him in a two story house with one step to enter and one full flight of stairs between floors. Patient's described patient as independent with his ADLs, personal care, bathing, dressing, toileting
and ambulates without the use of an assistive device although she reported that patient does have a walker from a past knee surgery.
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
He drives and can get to his appointments and do all of his own shopping.
Patient has not had VN services.
He has not been to A SNF in the past.
Patient has a prescription plan and uses, the [facility] pharmacy in [place] for all his medications.
His PCP is, Berry Dozier.
Kathi reviewed with patient's and signed, now in chart.
Patient's feels that she will be able to have patient return home when medically cleared for discharge.
Plan: Case management will continue to follow and assist with discharge planning. Home when stable.
[2023-10-20 15:00] VITALS: BP 144/80
[2023-10-20] MEDS: HEPARIN 25000 UNITS/250 ML IV (16:20)
[2023-10-20 17:42] LABS: APTT 72.4 Sec (23.4-35.0)
[2023-10-20] MEDS: HEPARIN 3700 UNITS IV (17:59)
--- NOTE | 2023-10-20 18:27 | PTCARENOTE ---
Pt running SB on the monitor hr in the 30-40, pt having frequent 2.5-3 second pauses. pt asymptomatic. Dr. Mishra notified via tt at 14:32, cardiology consulted.
[2023-10-20 19:00] VITALS: BP 149/77
[2023-10-20] MEDS: LIPITOR 10 MG PO (21:00)
[2023-10-20 23:00] VITALS: BP 137/77
[2023-10-21 01:16] LABS: APTT > 200 Sec (23.4-35.0)
[2023-10-21 03:00] VITALS: BP 141/81
[2023-10-21 07:38] VITALS: BP 140/75
[2023-10-21 07:56] LABS: Hematocrit 38.3 % (39.0-52.0); Hemoglobin 13.4 g/dL (13.0-18.0); Mean Corpuscular Hgb 31.5 pg (27.0-31.0); Mean Corpuscular Volume 90.1 fL (80.0-94.0); Mean Platelet Volume 9.9 fL (7.4-10.4); Platelet Count 146 10^3/uL (130-400); Red Blood Cell Count 4.25 10^6/uL (4.70-6.10); Red Cell Dist. Width 11.9 % (11.5-14.5); White Blood Cell Count 5.4 10^3/uL (4.8-10.8)
[2023-10-21] MEDS: VITAMIN C 500 MG PO (07:59)
--- NOTE | 2023-10-21 08:52 | W.PN.HOSP.TC ---
Today's Communication/Plan
-
see bold
Assessment / Plan
Assessment / Plan
Gen: NAD, AAOx3.
Eyes: EOMI, PERRLA, no scleral icterus.
Neck: supple.
CV: remains RRR, +S1/S2, no m/r/g.
Resp: remains CTAB, no rales, wheezes, or rhonchi.
Abd: remains +BS, soft, NT, ND
Skin: No rashes.
Neuro: CN 2-12 intact, non-focal.
Psych: Normal mood and affect.
CTA chest: Large volume pulmonary embolism, most pronounced involving the peripheral right main pulmonary artery, with near complete vessel lumen occlusion. Right ventricular heart strain with RV to LV ratio of 1.4, and mild reflux of contrast
material into the inferior vena cava. 3.2 cm part solid 'mass' in the posterolateral left lower lobe with associated small left pleural effusion. Nonspecific. Possibly round pneumonia, or perhaps opacity related to pulmonary infarct. Limited
evaluation of the subsegmental pulmonary vessels in the left lower lobe secondary to mild motion degradation. Moderate to large volume of confluent partially calcified lymphoid tissue/adenopathy in the hilar regions, bilaterally, as well as within
the mediastinum. Possible considerations include prior granulomatous disease or treated lymphoma.
B/L LE U/S: Acute right lower extremity DVT. Chronic left lower extremity nonocclusive DVT.
Acute hypoxemic respiratory insufficiency due to acute large volume pulmonary embolism of right main pulmonary artery with RV strain:
-possibly provoked from long car drives
-EKG showed right bundle branch block
-B/L LE DVTs as above
-cont Heparin drip for today, transition to Eliquis in AM
-holding ASA
-troponins NEG x 3
-Check echo
-Pulmonary following
-Holding ibuprofen
3.2 cm part solid mass in the posterior left lower lobe:
-Patient having pain in that area so likely pulmonary infarct
-No symptoms of pneumonia
[place] I 2nd deg AVB:
-pauses just under 3 seconds, asymptomatic
-currently not on BB or AVN blocking agents
-c/s cardiology, case discussed with Dr. Pagan over [employer]
-monitor on tele
Other problems:
Transaminitis, mild, outpt f/u
h/o sarcoidosis
Osteoarthritis: Holding ibuprofen
Hyperlipidemia: Continue statin
h/o first-degree AV block
Pt's updated at bedside.
FULL/heparin drip
Total time spent on today's encounter was 51 minutes which included time spent in counseling the patient/family regarding diagnosis and treatment plan as listed above, goals of care, and symptom management. Case was discussed with nursing staff,
specialists, and care coordinators/case management. All labs and imaging personally reviewed by me. Remainder the time spent in detailed review of previous records, lab data, imaging, and other medical provider documentation.
Anticipated Discharge: 24 - 48 hours
Subjective/Interval History
-
Date of Service: October 21, 2023
Denies CP/SOB.
Objective Data
-
Labs:
Laboratory Results
10/21/23 10/21/23 10/21/23
00:21 07:02 09:20
WBC 5.4
Hgb 13.4
Hct 38.3 L
Plt Count 146
APTT > 200 H* Pending
Vital Signs:
Vital Signs
Temp Pulse Resp BP Pulse Ox
97.9 F 94 18 140/75 97
10/21/23 07:38 10/21/23 07:38 10/21/23 07:38 10/21/23 07:38 10/21/23 07:45
I&O
10/20/23 10/21/23 10/22/23
06:59 06:59 06:59
Intake Total 3560 / 3560
Balance 3560 / 3560
[2023-10-21 09:42] LABS: APTT 73.9 Sec (23.4-35.0)
[2023-10-21 11:09] VITALS: BP 144/71
--- NOTE | 2023-10-21 11:46 | W.PN.PUL.V3 ---
Today's Communication / Plan
-
Heparin drip
Convert to Eliquis in the morning
Echocardiogram
Cardiology evaluation
Assessment
-
73-year-old male who is very active with a history of hyperlipidemia, sarcoidosis, osteoarthritis who recently had a long car drive from [place] and noticed increased dyspnea on exertion 3 days prior to admission noted to have hypoxemia on
[employer] Watch and advised by primary to come to the emergency room where he was noted to have a pulmonary embolism-pulmonary consulted for pulmonary embolism 10/20/2023.
Acute pulmonary emboli with moderate to large volume clot burden with right ventricular strain
Suspect provoked but family history
[id number] III high risk
Left lower lobe lung mass suspect pulmonary infarct-3.2 cm
Transaminitis
Mild hyperglycemia
Conditions present prior to admission:
Hyperlipidemia.
Sarcoidosis.
Osteoarthritis.
First-degree AV block.
Specifically no history of CAD, pulmonary, renal, gastrointestinal or neurologic disease
Plan
Continue with telemetry-patient has asymptomatic sinus bradycardia
Supplemental oxygen as needed-attempt to wean to room air
Aspiration precautions
Incentive spirometry
Nebulizers if needed-currently not bronchospastic
CT chest personally reviewed-summarized below
Echocardiogram pending
Lower extremity ultrasound 10/20/2023-acute right lower extremity DVT and chronic left lower extremity nonocclusive DVT
Will likely recommend hypercoagulable workup with family history [id number] likely provoked pulmonary embolism
Full PESI summarized above
Heparin drip or Lovenox 1 mg/kg every 12 hours
Convert to oral anticoagulant in the next 24 hours and treat for minimum of 3-6 months
Benefits and risks of thrombolytics therapy were reviewed
Patient has no tachycardia and no hypotension-currently risks of aggressive thrombolytic therapy outweigh benefits
Patient has asymptomatic sinus bradycardia and pauses
Cardiology evaluation pending
Increase activity
DVT prophylaxis-on full anticoagulation
Nutrition
Reviewed with at the bedside
Outpatient pulmonary [id number] PFTs, repeat lower extremity ultrasound/CT chest and probable hypercoagulable workup
Outpatient appropriate malignancy screening including colonoscopy and prostate exam
Diagnostic data:
Chest x-ray 07/28/2014-bilateral hilar lymphadenopathy and right paratracheal lymphadenopathy
CT chest 10/19/2023-large volume pulmonary embolism most pronounced peripheral right main pulmonary artery, right ventricular strain, 3.2 cm part solid consolidation left lower lobe associated with small left pleural effusion suspected related to
pulmonary infarct, moderate to large volume calcified lymphoid tissue/adenopathy
Lower extremity ultrasound 10/20/2023-acute right lower extremity DVT, chronic left lower extremity nonocclusive DVT
Echocardiogram 08/11/2014-EF 55-60%, mild mitral regurgitation, PA systolic 28-33, mildly dilated aortic root measuring 4.0 cm
Subjective Data
-
Date of Service:
Date of Service: October 21, 2023
Chief Complaint: Pulmonary Follow Up and Dyspnea Follow Up
Subjective:
Denies shortness of breath, chest pain, pleurisy, dyspnea on exertion, abdominal pain
Review of Systems
General: Other ( Per HPI)
Objective Data
Data Reviewed
Vital Signs / I&O:
Vital Signs
Temp Pulse Resp BP Pulse Ox
97.9 F 92 17 144/71 98
10/21/23 11:09 10/21/23 11:09 10/21/23 11:09 10/21/23 11:09 10/21/23 11:09
Intake and Output
10/20/23 10/21/23 10/22/23
06:59 06:59 06:59
Intake Total 3560 / 3560
Balance 3560 / 3560
SaO2: 98
Nasal Cannula flow liters per minute: 4
Physical Exam
General: Respiratory Distress (n) and Comfortable
HEENT: Normocephalic, Anicteric and Moist Mucous Membranes
Cardiovascular: Regular Rhythm (Bradycardia)
Labs/Micro/Reports
Lab Data
10/21/23 07:02
10/20/23 08:56
Laboratory Results
10/20/23 10/20/23 10/21/23
11:24 17:09 00:21
APTT 103.2 H 72.4 H > 200 H*
10/21/23
09:22
APTT 73.9 H
[2023-10-21] MEDS: HEPARIN 25000 UNITS/250 ML IV (14:43)
[2023-10-21 15:17] VITALS: BP 123/78
[2023-10-21 15:29] LABS: APTT 40.8 Sec (23.4-35.0)
[2023-10-21] MEDS: HEPARIN 7400 UNITS IV (15:41)
--- NOTE | 2023-10-21 19:08 | CON.CAR ---
Consultation
Consultation Request
Date/Time Consultation Requested: 10/20/2023 1445
Date/Time Consultation Performed: 10/21/2023 1030
Requesting Provider: Price Cage MD
Performing Provider: Luiz Pagan DO
Reason for Consultation: Bradycardia
Medical History
-
Chief Complaint: SOB
History of Present Illness:
Patient is a pleasant 73-year-old male with a past medical history significant for dyslipidemia, hypothyroidism, hilar adenopathy, sarcoidosis, renal calculi, osteoarthritis, bifascicular block, asymptomatic bradycardia who presented after long car
drive from [place] with worsening shortness of breath over 3 days noted to be hypoxemic on Apple Watch found to have pulmonary embolism on CT scan 10/20/2023. Patient subsequently treated with IV anticoagulation. In discussion with patient
and his , he reports that overall he feels better since admission. He denies any chest pain, shortness of breath, palpitations, lightheadedness, dizziness, near-syncope, syncope, PND, orthopnea, edema, or weakness. Of note, patient was
diagnosed with sarcoidosis by chest x-ray greater than 15 years ago per patient. Additionally, patient has longstanding history of bifascicular block with asymptomatic bradycardia previously evaluated by Dr. Devyn Catherine 5-10 years ago per
patient. Patient has had no further follow-up regarding cardiovascular disease or bradycardia. In discussion with patient, he notes that he is active without limitation. Up until this admission, he had reported that he exercises frequently noting
that his Apple Watch demonstrates a heart rate in the 100-1 30 range with activity and exertion. Additionally, he routinely receives alerts that his heart rate is less than 40 by his Apple Watch but denies any issues associated with this. Patient
reports that he had discussed this with his primary care physician greater than 5 years ago and since that time, has had no issues. No reported family history of early heart disease. No family history of sudden cardiac . Non-smoker rare
alcohol no illicits.
Past Medical History
Past Medical History: Other (per hpi)
Past Surgical History: None
Social History
Tobacco: Non-Smoker
Alcohol: Occasional
Drug: None
Personal:
Living: With Family
Family History
Family History: Reviewed & Not Pertinent
Allergies / Home Medications
Allergy/AdvReac Type Severity Reaction Status Date / Time
No Known Allergies Allergy Verified 10/19/23 15:54
�Medication �Instructions �Recorded �Confirmed �Type
ascorbic acid (vitamin C) 500 mg 500 mg PO DAILY Supplement 07/28/14 10/19/23 History
tablet (Vitamin C)
omega-3 fatty acids-fish oil 300 1 ea PO DAILY Supplement 07/28/14 10/19/23 History
mg-1,000 mg capsule
simvastatin 20 mg tablet 20 mg PO HS High Cholesterol 07/28/14 10/19/23 History
aspirin 81 mg chewable tablet 81 mg PO DAILY Blood Clot 04/30/23 10/19/23 History
Prevention/Tx
diphenhydramine 25 1 tab PO HSPRN PRN sleep 10/19/23 10/19/23 History
mg-acetaminophen 500 mg tablet
(Tylenol PM Extra Strength)
ibuprofen 200 mg tablet (Advil) 200 mg PO BIDPRN PRN mild pain 10/19/23 10/19/23 History
Review of Systems
-
History Source: Patient and Family
All other systems: Negative unless noted
Constitutional: No Symptoms
EENT: No Symptoms
Respiratory: Trouble Breathing
Cardiac: No Symptoms
Abdomen/GI: No Symptoms
: No Symptoms
Musculoskeletal: No Symptoms
Skin: No Symptoms
Neurological: No Symptoms
Endocrine: No Symptoms
Hematologic/Lymphatic: No Symptoms
Physical Exam
Vital Signs
Temp Pulse Resp BP Pulse Ox
98.2 F 50 16 123/78 97
10/21/23 15:17 10/21/23 15:17 10/21/23 15:17 10/21/23 15:17 10/21/23 15:17
Lab Results
10/21/23 07:02
10/20/23 08:56
Troponin I 0.022 ng/ml 10/20/23 08:56
Amf-K-Pcxkvtdgfrn Pept 846 pg/ml 10/19/23 16:08
Physical Exam
General: Well Developed, Well Nourished, No Apparent Distress and Comfortable
HEENT: Normocephalic, Anicteric and Moist Mucous Membranes
Respiratory: Clear, Non Labored Respirations and Other (no wheeze, rhonchi, or rales)
Cardiac: S1/S2, Regular Rhythm (bradycardic) and Other (no edema, no appreciated JVD, no carotid bruit appreciated)
Breast: Deferred by me
GI: Soft, Non Tender, Non Distended and Normal Bowel Sounds
Rectal: Deferred by Provider
Musculoskeletal: No Clubbing, No Cyanosis and No Edema
Skin: Warm and Dry
Neuro: AO x 3, No Motor Deficits and Nonfocal/Grossly Intact
Psych: Calm
Impression / Plan
-
PCP: Berry Agudelo MD
[employer]ling Ball Weigher And Packer: Devyn Catherine MD
.
Assessment:
Acute PE with moderate to large clot burden with RV strain
Bifascicular block
First-degree AV block
Bradycardia, asymptomatic
Osteoarthritis
History of sarcoidosis
Dyslipidemia
Hypothyroidism
CT chest 10/19/2023: Large volume pulmonary embolism pronounced peripheral right main pulmonary artery, right ventricular strain, 3.2 cm part solid consolidation left lower lobe associate with small pleural effusion suspect related to pulmonary
infarct, moderate to large volume calcified lymphoid tissue/adenopathy
Echo 08/11/2014: EF 55 to 60%, mild MR, PASP 28-30 mmHg, mildly dilated aortic root 4.0 cm
Plan:
� 2D echocardiogram assess cardiac size, shape, function, and valvular anatomy in the setting of PE
� Ambulating patient demonstrates appropriate heart rate increase with one-to-one conduction on telemetry (60-70 bpm while walking the halls); review of telemetry otherwise shows sinus bradycardia with first-degree AV block occasional second-degree
type I Wenke block additionally, there are PACs with compensatory pause. During these episodes during waking hours, patient denies symptoms when interrogated. Other episodes of bradycardia occurring while sleeping.
� Continue to monitor on telemetry
� IV anticoagulation with changed to oral anticoagulation per pulmonology
� Regarding patient's history of sarcoidosis, appreciate input by pulmonology. It is unclear at this time, if patient received treatment but denies currently on steroid therapy. No recent episodes of syncope or reported sudden cardiac .
Pending echocardiogram, patient may benefit from cardiac MRI to evaluate for cardiac scar. At this time, patient does not meet indication for implantable cardiac device however continue to monitor. Pacemaker and defibrillator options discussed
with patient briefly however again, no clear indication at this time for pacing or defibrillation needs. Awaiting imaging
d/w nursing, primary service
Data Reviewed
-
EKG: Tracing Personally Visualized and interpreted
Radiology: Report Reviewed by me
CT Scan: Report Reviewed by me
Medical Tests (Nuc Med, Echo etc): Report Reviewed by me
Labs: Labs Reviewed by me
Old Records: Reviewed
Total Time Spent with Patient (in minutes): 55
[2023-10-21 19:15] VITALS: BP 132/74
[2023-10-21] MEDS: LIPITOR 10 MG PO (21:08)
[2023-10-21 23:12] LABS: APTT > 200 Sec (23.4-35.0)
[2023-10-21 23:17] VITALS: BP 140/74
[2023-10-22 03:39] VITALS: BP 143/81
[2023-10-22 06:54] LABS: APTT 88.2 Sec (23.4-35.0)
[2023-10-22 07:00] VITALS: BP 144/76
[2023-10-22] MEDS: ELIQUIS 10 MG PO ×2 (07:51→18:19)
[2023-10-22] MEDS: VITAMIN C 500 MG PO (07:51)
--- NOTE | 2023-10-22 09:58 | W.PN.CARDCBS ---
Addendum entered and electronically signed by Mathew De La Torre DO 10/22/23 11:13:
I saw and examined the patient.
The Processor Inspector's note was reviewed and I agree with the note.
Comment:
Plan:
Echo reviewed with some mild RV dilation. Repeat echo in 2 months for reeval.
EF is preserved with stable valves.
HR stable. hx of bradycardia.
Cont anticoagulation for PE as per primary service.
hx sarcoid, defer consideration and timing for cardiac MR to primary fundraising officer.
Will arrange outpt cardiac follow up.
Discussed with pt and family at bedside.
Please recall if needed.
Original Note:
Today's Communication / Plan
-
Echo as noted with mild RV dilation, repeat in 2-3 months as outpatient
Started on Eliquis 10 mg BID 10/22/2023 x 7 days then reduce to 5 mg BID 10/30/2023
Continue to monitor on tele
Will arrange for outpatient cardiology follow up
Impression / Plan
-
PCP: Berry Agudelo MD
Optical Scientist: Devyn Catherine MD
.
Assessment:
Presented 10/19/2023 with worsening shortness of breath x 3 days with hypoxemia on Apple Watch
Acute PE with moderate to large clot burden with RV strain on CT 10/20/2023
Acute Right LE DVT w/ chronic left lower extremity nonocclusive DVT on Doppler 10/20/23
Asymptomatic bradycardia
Bifascicular block
First-degree AV block
Bradycardia, asymptomatic
Osteoarthritis
History of sarcoidosis
Dyslipidemia
Hypothyroidism
CT chest 10/19/2023: Large volume pulmonary embolism pronounced peripheral right main pulmonary artery, right ventricular strain, 3.2 cm part solid consolidation left lower lobe associate with small pleural effusion suspect related to pulmonary
infarct, moderate to large volume calcified lymphoid tissue/adenopathy
Echo 10/22/2023: EF 66%, biatrial dilation, mildly dilated RV, with mild MR/TR. Dilated aortic root
Echo 08/11/2014: EF 55 to 60%, mild MR, PASP 28-30 mmHg, mildly dilated aortic root 4.0 cm
Plan:
- Presented 10/19/2023 with worsening shortness of breath x 3 days with hypoxemia on Apple Watch. Noted to have moderate to large acute PE on CT 10/20/2023.
-Lower extremity ultrasound 10/20/2023-acute right lower extremity DVT and chronic left lower extremity nonocclusive DVT.Consider hypercoagulable workup with family history [id number] likely provoked pulmonary embolism
-Now on room air with good saturation 94-96%%
� Started on Eliquis 10 mg BID 10/22/2023 x 7 days then reduce to 5 mg BID 10/30/2023. Will need minimum of 3-6 months per pulmonology
� Echocardiogram 10/22/23 shows preserved EF 66% with mildly dilated RV, with mild MR. Would reassess echo as outpatient in 2-3 months with anticoagulation.
� Asymptomatic long-standing bradycardia. Patient ambulated around the unit 10/21/2023 which demonstrated appropriate heart rate increase with one-to-one conduction on telemetry (60-70 bpm while walking the halls); review of telemetry otherwise shows
sinus bradycardia with first-degree AV block occasional second-degree type I Wenke block additionally, there are PACs with compensatory pause. During these episodes during waking hours, patient denies symptoms when interrogated. Other episodes of
bradycardia occurring while sleeping. No further work-up required and he does not meet criteria for PPM at this time
� Continue to monitor on telemetry
� Regarding patient's history of sarcoidosis, appreciate input by pulmonology. It is unclear at this time, if patient received treatment but denies currently on steroid therapy. No recent episodes of syncope or reported sudden cardiac .
Patient may benefit from cardiac MRI to evaluate for cardiac scar which can be done as outpatient. At this time, patient does not meet indication for implantable cardiac device however continue to monitor. Pacemaker and defibrillator options
discussed with patient briefly however again, no clear indication at this time for pacing or defibrillation needs.
History of Present Illness 10/21/23:
Patient is a pleasant 73-year-old male with a past medical history significant for dyslipidemia, hypothyroidism, hilar adenopathy, sarcoidosis, renal calculi, osteoarthritis, bifascicular block, asymptomatic bradycardia who presented after long car
drive from [place] with worsening shortness of breath over 3 days noted to be hypoxemic on Apple Watch found to have pulmonary embolism on CT scan 10/20/2023. Patient subsequently treated with IV anticoagulation. In discussion with patient
and his , he reports that overall he feels better since admission. He denies any chest pain, shortness of breath, palpitations, lightheadedness, dizziness, near-syncope, syncope, PND, orthopnea, edema, or weakness. Of note, patient was
diagnosed with sarcoidosis by chest x-ray greater than 15 years ago per patient. Additionally, patient has longstanding history of bifascicular block with asymptomatic bradycardia previously evaluated by Dr. Devyn Catherine 5-10 years ago per
patient. Patient has had no further follow-up regarding cardiovascular disease or bradycardia. In discussion with patient, he notes that he is active without limitation. Up until this admission, he had reported that he exercises frequently noting
that his Apple Watch demonstrates a heart rate in the 100-130 range with activity and exertion. Additionally, he routinely receives alerts that his heart rate is less than 40 by his Apple Watch but denies any issues associated with this. Patient
reports that he had discussed this with his primary care physician greater than 5 years ago and since that time, has had no issues. No reported family history of early heart disease. No family history of sudden cardiac . Non-smoker rare
alcohol no illicits.
Progress Note - Optical Scientist
Subjective
Date of Service: October 22, 2023
Patient seen and examined. Resting comfortably in bed without chest pain or SOB which has resolved over last 24-48 hours. Now on room air. Reports that he is eager to go home
Objective
Labs:
10/21/23 07:02
10/20/23 08:56
Labs
Hgb 13.4 g/dL (13.0-18.0) 07/28/24 07:02
Hct 38.3 % (39.0-52.0) L 10/21/23 07:02
Plt Count 146 10^3/uL (130-400) 10/21/23 07:02
PT 15.0 Sec (11.4-14.6) H 10/19/23 16:08
INR 1.20 10/19/23 16:08
APTT 88.2 Sec (23.4-35.0) H 10/22/23 06:08
Sodium 137 mmol/L (135-145) 10/20/23 08:56
Potassium 4.1 mmol/L (3.5-5.1) 10/20/23 08:56
BUN 20 mg/dl (9-20) 10/20/23 08:56
Creatinine 1.0 mg/dL (0.7-1.3) 10/20/23 08:56
Glucose 126 mg/dl (70-99) H 10/20/23 08:56
Troponins
10/19/23 10/19/23 10/20/23
16:08 21:28 02:27
Troponin I 0.026 0.031 0.028
10/20/23
08:56
Troponin I 0.022
Vital Signs and I&O:
Vital Signs
Temp Pulse Resp BP Pulse Ox
97.4 F 46 16 144/76 94
10/22/23 07:00 10/22/23 07:00 10/22/23 07:00 10/22/23 07:00 10/22/23 07:00
Vital Signs
Temp Pulse Resp BP Pulse Ox
97.4 F 46 16 144/76 94
10/22/23 07:00 10/22/23 07:00 10/22/23 07:00 10/22/23 07:00 10/22/23 07:00
Intake & Output
10/20/23 10/21/23 10/22/23 10/23/23
06:59 06:59 06:59 06:59
Intake Total 3560 / 3560 960 / 960
Balance 3560 / 3560 960 / 960
Physical Exam
Physical Exam
GEN: No distress, awake, Ox3
HEENT: supple, anicteric, mmm
LUNGS: CTA, no wheezes/rales; on room air
CV: distant heart tones, Reg but bradycardic, S1/S2, no murmur, rub or gallop
ABD: soft, BS+, NT/ND
EXT: No edema, clubbing or cyanosis
NEURO: Gross non-focal
SKIN: No rash
--- NOTE | 2023-10-22 10:46 | W.DCSUMMARY ---
Addendum entered and electronically signed by Ponce Schwartz MD 10/22/23 23:06:
Read, reviewed, and agree
Marcus Schwartz MD
Original Note:
Documented by User: Dank West DO, Resident 10/22/23 18:54
Discharge Summary
Discharge Data
Date of Admission: 10/21/23
Date of Discharge: 10/22/23
Total time spent discharging patient (in min): 50
-
Pending Results: No
Hospital Course
10/19/2023: Patient presented to the ED with 3 days of shortness of breath. O2 saturation had dropped to 88% per Apple Watch. Patient was having sensations of incomplete left sided lung filling. At the time he reported no headaches, nausea,
vomiting, diarrhea, chest pain, shortness of breath, abdominal pain, numbness or tingling. His primary care physician had told him to come to the ER on Sunday to rule out any pulmonary embolism. Additionally, he denied any lower extremity pain or
swelling. He denied any personal history of blood clot however confirmed his brother had a blood clot [address] PE protocol showed large volume pulmonary embolism of the right main pulmonary artery with RV strain. Showed RV to LV ratio at 1.4. Showed 3.2 cm part solid mass in posterior left lower lobe likely due to pulmonary infarct. Patient was started
on heparin per DVT protocol and admitted to the hospital.
10/19-: EKG showed right bundle branch block. Patient was continued on heparin drip and aspirin was held. Bilateral lower extremity venous ultrasound showed DVT. Pulmonary consulted. They suspect PESI�105�class III high risk and
recommended telemetry, supplemental oxygen as needed, aspiration precautions, incentive spirometry, nebulizers. Also recommended to check echocardiogram completed this morning on 10/22/2023 and and to possibly complete a hypercoagulable workup due
to family history. Plan to transition to [facility] on 10/21. Patient continued to be monitored on telemetry due to Mobitz 1 second-degree AV block. Pauses under 3 seconds and patient is asymptomatic. Currently not on any beta-blockers or AV luh
blocking agents.
10/22/2023: Patient transition to Eliquis p.o. Heparin drip stopped. Patient had repeat echo this morning. Patient to be discharged to home. Patient given 7-day prescription for 10 mg twice daily of Eliquis and then to transition 5 mg twice daily
daily of Eliquis for 90 days. Patient to follow-up with primary care physician in 1 to 2 weeks. Patient to follow-up with pulmonology in 4 to 6 weeks. Patient to follow with cardiology for echo in December. Patient's discharge summary included
education on cholesterol-lowering diet, as tolerated activity, and on not taking NSAIDs with Eliquis.
Discharge Plan
-
Patient Disposition: Home (Routine Discharge)
Discharge Diagnosis/Procedures: pulmonary embolism
Condition: Good
Diet: Low Cholesterol
Activity: As tolerated
Driving Restrictions: As prior to admission
Bathing Restrictions: None
Others Tests: You have a repeat Echocardiogram scheduled on December 30 at 11:20 am at [facility]. Please arrive 15 minutes early to central scheduling to register
Activity Restrictions/Additional Instructions:
Do not take NSAIDs when on Eliquis.
Never miss a dose of Eliquis.
NSAIDs tends to increase risk of GI (stomach and intestines) bleeding when taken with blood thinners. Always check with primary care if you need to take any pain medication other than Tylenol.
Referrals:
Mathew De La Torre DO [Active] - 01/30/24 10:20 am (You have a cardiology follow up with Dr. De La Torre on January 29 at 10:[address] in [address] in [address] [facility] which is located behind the hospital. If you are unable to make this appointment please call
[phone] to reschedule. )
Berry Agudelo MD [Family Provider] - in one to two weeks (Please follow up with PCP for Eliquis script)
Maxx Graham MD [Active] - in four to six weeks
(Dr. Graham or WRAPPER OPERATOR
PFTs, 6-minute walk test
Eventual lower extremity ultrasound and CT chest to ensure clot resolution
Eventual hypercoagulable workup by hematology)
Prescriptions:
New
apixaban 5 mg (74 tabs) tablets,dose pack
10 mg PO BID 7 Days Qty: 74 0RF
Rx Instructions:
followed by 5mg BID for 90 days
Continued
ascorbic acid (vitamin C) [Vitamin C] 500 MG tablet
500 mg PO DAILY
simvastatin 20 MG tablet
20 mg PO HS
omega-3 fatty acids-fish oil 1 EACH capsule
1 ea PO DAILY
diphenhydramine-acetaminophen [Tylenol PM Extra Strength] 25-500 mg Tablet
1 tab PO HSPRN PRN (Reason: sleep)
Discontinued
aspirin [Baby Aspirin] 81 mg Tablet,Chewable
81 mg PO DAILY
ibuprofen [Advil] 200 mg Tablet
200 mg PO BIDPRN PRN (Reason: mild pain)
Discharge Orders:
Discharge Patient (As Directed); Ordered 10/22/23
Ordered By: Dank West
Discharge Date and Time
Discharge Date/Time: 10/22/23 19:03
Print Language: SLOVAK

Documented by User: Ponce Schwartz MD 10/22/23 22:59
Discharge Summary
Discharge Data
Date of Admission: 10/21/23
Date of Discharge: 10/22/23
Discharge Plan
-
Patient Disposition: Home (Routine Discharge)
Discharge Diagnosis/Procedures: pulmonary embolism
Condition: Good
Diet: Low Cholesterol
Activity: As tolerated
Driving Restrictions: As prior to admission
Bathing Restrictions: None
Others Tests: You have a repeat Echocardiogram scheduled on December 30 at 11:20 am at [facility]. Please arrive 15 minutes early to central scheduling to register
Activity Restrictions/Additional Instructions:
Do not take NSAIDs when on Eliquis.
Never miss a dose of Eliquis.
NSAIDs tends to increase risk of GI (stomach and intestines) bleeding when taken with blood thinners. Always check with primary care if you need to take any pain medication other than Tylenol.
Referrals:
Mathew De La Torre DO [Active] - 01/30/24 10:20 am (You have a cardiology follow up with Dr. De La Torre on January 29 at 10:[address] [facility] which is located behind the hospital. If you are unable to make this appointment please call
[phone] to reschedule. )
Berry Agudelo MD [Family Provider] - in one to two weeks (Please follow up with PCP for Eliquis script)
Maxx Graham MD [Active] - in four to six weeks
(Dr. Graham or WRAPPER OPERATOR
PFTs, 6-minute walk test
Eventual lower extremity ultrasound and CT chest to ensure clot resolution
Eventual hypercoagulable workup by hematology)
Prescriptions:
New
apixaban 5 mg (74 tabs) tablets,dose pack
10 mg PO BID 7 Days Qty: 74 0RF
Rx Instructions:
followed by 5mg BID for 90 days
Continued
ascorbic acid (vitamin C) [Vitamin C] 500 MG tablet
500 mg PO DAILY
simvastatin 20 MG tablet
20 mg PO HS
omega-3 fatty acids-fish oil 1 EACH capsule
1 ea PO DAILY
diphenhydramine-acetaminophen [Tylenol PM Extra Strength] 25-500 mg Tablet
1 tab PO HSPRN PRN (Reason: sleep)
Discontinued
aspirin [Baby Aspirin] 81 mg Tablet,Chewable
81 mg PO DAILY
ibuprofen [Advil] 200 mg Tablet
200 mg PO BIDPRN PRN (Reason: mild pain)
Discharge Orders:
Discharge Patient (As Directed); Ordered 10/22/23
Ordered By: Dank West
Discharge Date and Time
Discharge Date/Time: 10/22/23 19:03
Print Language: SLOVAK
[2023-10-22 11:00] VITALS: BP 150/75
--- NOTE | 2023-10-22 11:36 | W.PN.PUL3 ---
Today's Communication / Plan
-
Okay to transition to oral anticoagulation from my perspective
Recommend outpatient pulmonary follow-up.
Okay to discharge from my perspective
Sign off
Assessment
-
73-year-old male who is very active with a history of hyperlipidemia, sarcoidosis, osteoarthritis who recently had a long car drive from [place] and noticed increased dyspnea on exertion 3 days prior to admission noted to have hypoxemia on
[employer] and advised by primary to come to the emergency room where he was noted to have a pulmonary embolism-pulmonary consulted for pulmonary embolism 10/20/2023.
Acute pulmonary emboli with moderate to large volume clot burden with right ventricular strain
Suspect provoked but family history
[id number] III high risk
Left lower lobe lung mass suspect pulmonary infarct-3.2 cm
Transaminitis
Mild hyperglycemia
Conditions present prior to admission:
Hyperlipidemia.
Sarcoidosis.
Osteoarthritis.
First-degree AV block.
Specifically no history of CAD, pulmonary, renal, gastrointestinal or neurologic disease
Plan
Continue with telemetry-patient has asymptomatic sinus bradycardia.
Patient denies any shortness of breath. Was able to ambulate around the laird without symptoms.
Hemodynamically stable
Not requiring supplemental oxygen.
CT chest noted large clot burden pulmonary embolism.
Echocardiogram mild RV strain/dilatation. Normal LVEF.
Lower extremity ultrasound 10/20/2023-acute right lower extremity DVT and chronic left lower extremity nonocclusive DVT
Will likely recommend hypercoagulable workup with family history [id number] likely provoked pulmonary embolism. Can be referred to hematology in the outpatient setting.
Full PESI summarized above
Heparin drip.
Okay to transition to oral anticoagulants today.
treat for minimum of 3-6 months to lifelong depending on outpatient evaluation-it is noted that he has a chronic left lower extremity nonocclusive DVT. This may increase risk of recurrence.
-
Recommended patient abstain from heavy exercising for the next 4 to 6 weeks.
Patient was not a candidate for thrombolysis. This was discussed previously on admission.
Patient has no tachycardia and no hypotension-currently risks of aggressive thrombolytic therapy outweigh benefits
Patient has asymptomatic sinus bradycardia and pauses
Cardiology following patient, plan to repeat echocardiogram in the outpatient setting.
Increase activity as tolerated.
DVT prophylaxis-on full anticoagulation-transitioned to p.o. anticoagulation.
-
Outpatient pulmonary [id number] PFTs, repeat lower extremity ultrasound/CT chest and probable hypercoagulable workup. Information will be left in the chart.
Outpatient appropriate malignancy screening including colonoscopy and prostate exam
-
Dr. Pereira updated patient and in detail 10/22/2023.
Okay to discharge from my perspective.
Sign off
Diagnostic data:
Chest x-ray 07/28/2014-bilateral hilar lymphadenopathy and right paratracheal lymphadenopathy
CT chest 10/19/2023-large volume pulmonary embolism most pronounced peripheral right main pulmonary artery, right ventricular strain, 3.2 cm part solid consolidation left lower lobe associated with small left pleural effusion suspected related to
pulmonary infarct, moderate to large volume calcified lymphoid tissue/adenopathy
Lower extremity ultrasound 10/20/2023-acute right lower extremity DVT, chronic left lower extremity nonocclusive DVT
Echocardiogram 08/11/2014-EF 55-60%, mild mitral regurgitation, PA systolic 28-33, mildly dilated aortic root measuring 4.0 cm
Subjective Data
-
Date of Service:
Date of Service: October 22, 2023
Chief Complaint: Pulmonary Follow Up and Dyspnea Follow Up
Subjective:
No complaints at rest
Tolerating anticoagulation
Review of Systems
General: Fever (n)
Cardiopulmonary: Dyspnea (none at rest)
GI: Nausea (n)
Objective Data
Data Reviewed
Vital Signs / I&O / Oxygen:
Vital Signs
Temp Pulse Resp BP Pulse Ox
97.4 F 46 16 144/76 94
10/22/23 07:00 10/22/23 07:00 10/22/23 07:00 10/22/23 07:00 10/22/23 07:00
Intake and Output
10/21/23 10/22/23 10/23/23
06:59 06:59 06:59
Intake Total 3560 / 3560 960 / 960
Balance 3560 / 3560 960 / 960
SaO2 94
Nasal Cannula flow liters per 4
minute
Physical Exam
General: Respiratory Distress (n) and Comfortable
HEENT: Normocephalic, Anicteric and Moist Mucous Membranes
Cardiovascular: Regular Rhythm (Bradycardia)
Respiratory: Clear and Non-Labored Respirations
GI: Soft and Non Distended
Neurology: Awake and AO x 3
Skin: Warm
Labs/Micro/Reports
Lab Data
10/21/23 07:02
10/20/23 08:56
Laboratory Results
10/21/23 10/21/23 10/22/23
15:04 22:37 06:08
APTT 40.8 H > 200 H* 88.2 H
[2023-10-22 15:00] VITALS: BP 118/71
--- NOTE | 2023-10-22 15:23 | W.PN.HOSP.TC ---
Addendum entered and electronically signed by Ponce Schwartz MD 10/22/23 23:05:
I saw and evaluated the patient. I reviewed the resident�s note and agree with findings and plan as documented in the resident�s note. Sub: No complaints denies CP SOB wants to go home seen with . Full 12 point ROS reviewed and negative except
as documented Exam: Vitals reviewed in chart GEN-NAD heart RRR lungs clear abd soft LE no edema
Acute hypoxemic respiratory insufficiency due to acute large volume pulmonary embolism of right main pulmonary artery with RV strain:
-EKG showed right bundle branch block
-B/L LE DVTs as above
-transitioned to eliquis from hep gtt
-holding ASA
-troponins NEG x 3
-Check echo-Normal left ventricular size, wall thickness and systolic function. No regional
wall motion abnormalities are seen. LV ejection fraction is 66%.
Biatrial enlargement
Mildly dilated right ventricle.
Mild mitral regurgitation.
Mild tricuspid regurgitation.
Dilated aortic root.
Compared to the previous echo July 2014, which was reviewed, there is now mildly
dilated right ventricle.
- d/w cards stable for DC home with close follow up echo
- 3.2 cm part solid mass in the posterior left lower lobe:
-Patient having pain in that area so likely pulmonary infarct
-No symptoms of pneumonia
- f/u pulm as OP
-Mobitz I 2nd deg AVB:
-currently not on BB or AVN blocking agents
-monitor on tele
- h/o bradycardia - asymptomatic
- f/u as OP d/w cards
Other problems:
Transaminitis, mild, outpt f/u
h/o sarcoidosis
Osteoarthritis: Holding ibuprofen
Hyperlipidemia: Continue statin
h/o first-degree AV block
Pt's updated at bedside.
FULL
Dispo DC home with coupon obtained for 30 day supply eliquis
Time spent coordinating care, DC planning, review of DC plan of care with resident, transition of care, review of records, med rec/scripts sent electronically, consults, notes, d/w consultants, nursing, family, and CM- coupon for eliquis� 37 mins
Original Note:
Today's Communication/Plan
-
Assessment / Plan
Assessment / Plan
Patient is a 73-year-old male presenting to the ED with large volume pulmonary embolism after 3 days of shortness of breath and discomfort with deep breathing. Patient is stable.
Acute hypoxemic respiratory insufficiency due to acute large volume pulmonary embolism of right main pulmonary artery with RV strain:
-Bilateral lower extremity DVTs noted in ultrasound
� Patient transition from heparin drip to Eliquis this morning
� Awaiting social work consultation on Eliquis
� Continue holding ASA, ibuprofen
� Follow-up on echo results. Echo completed this a.m.
-Pulmonary and cardiology following patient
-Patient on wearing compression socks and mobilizing on long car drives or travel
solid mass in the posterior left lower lobe:
-Patient having pain in that area so likely pulmonary infarct
-No symptoms of pneumonia
Mobitz I 2nd degree A-V block
-Patient is asymptomatic and not on beta-blockers or AV luh blocking agents currently
-Follow with cardiology
FULL/DVT
CTA chest: Large volume pulmonary embolism, most pronounced involving the peripheral right main pulmonary artery, with near complete vessel lumen occlusion. Right ventricular heart strain with RV to LV ratio of 1.4, and mild reflux of contrast
material into the inferior vena cava. 3.2 cm part solid 'mass' in the posterolateral left lower lobe with associated small left pleural effusion. Nonspecific. Possibly round pneumonia, or perhaps opacity related to pulmonary infarct. Limited
evaluation of the subsegmental pulmonary vessels in the left lower lobe secondary to mild motion degradation. Moderate to large volume of confluent partially calcified lymphoid tissue/adenopathy in the hilar regions, bilaterally, as well as within
the mediastinum. Possible considerations include prior granulomatous disease or treated lymphoma.
B/L LE U/S: Acute right lower extremity DVT. Chronic left lower extremity nonocclusive DVT.
Anticipated Discharge: Within 24 hours
Subjective/Interval History
-
Date of Service: October 22, 2023
Patient is a 73-year-old male with large volume pulmonary embolism and peripheral right main pulmonary artery. He states he is feeling well today. He reports no headaches, shortness of breath, chest pain, nausea, vomiting, diarrhea, abdominal
pain, numbness and tingling, pain with deep inspiration or any other new symptoms of concern.
Objective Data
-
Labs:
Laboratory Results
10/22/23
06:08
APTT 88.2 H
Vital Signs:
Vital Signs
Temp Pulse Resp BP Pulse Ox
97.4 F 51 16 150/75 96
10/22/23 11:00 10/22/23 11:00 10/22/23 11:00 10/22/23 11:00 10/22/23 11:00
I&O
10/21/23 10/22/23 10/23/23
06:59 06:59 06:59
Intake Total 3560 / 3560 960 / 960
Balance 3560 / 3560 960 / 960
Review of Systems
-
History Source: Patient
All other systems: Reviewed and negative
Constitutional: Reports No Symptoms
EENT: Reports No Symptoms Reported
Respiratory: Reports No Symptoms
Cardiac: Reports No Symptoms
Abdomen/GI: Reports No Symptoms
Musculoskeletal: Reports No Symptoms
Skin: Reports No Symptoms
Neuro: Reports No Symptoms
Physical Exam
-
General: Well Developed, Well Nourished, No Apparent Distress and Comfortable
HEENT: Normocephalic, Atraumatic and Moist Mucous Membranes
Respiratory: Clear to Auscultation, Non Labored Respirations and Clear to Percussion
Cardiac: Regular Rhythm and S1/S2
GI: Soft, Nontender, Nondistended and Normal Bowel Sounds
Skin: Warm and Dry
Neuro: AO x 3, No Motor Deficits and No Sensory Deficits
Psych: Calm
Data Reviewed
-
Total Time Spent with Patient (in minutes): 30
CT Scan: Report Reviewed by me
Ultrasound: Report Reviewed by me
Medical Tests (Nuc Med, Echo etc): Report Reviewed by me
Labs: Labs Reviewed by me and Discussed with Physician
Old Records: Reviewed
--- NOTE | 2023-10-22 16:31 | CM ---
Received consult from Resident to petty Eliquis 10 mg BID 7 days then 5 mg BID 90 days.
Placed a call to [facility] and spoke with a tech named, Rae, who stated that 5mg BID 90 days would be 550.39. She was unable to run cost for 7 days.
Forgan Texted Resident to update.
Plan: Case management will continue to follow and assist with discharge planning. Home when stable.
--- NOTE | 2023-10-23 10:29 | CM ---
Message from pt post discharge noting his local [facility] is out of stock for Eliquis
Call with [facility] who confirmed [facility] [address]
Call [facility] and confirmed in stock and ready for pickup today
Call with pt to provide update
== END 2023-10-22 19:03 | disposition home or self-care (01) | DRG 176 ==
LOC: 3 WEST ACU 11:51
PROVIDERS: Emergency Medicine; Internal Medicine; ADMITTING PHYSICIAN Hospitalist; ATTENDING PHYSICIAN Family Medicine; CONSULT PHYSICIAN Internal Medicine Cardiovascular Disease; CONSULT PHYSICIAN Internal Medicine Critical Care Medicine; EMERGENCY PHYSICIAN Student in an Organized Health Care Education/Training Program; FAMILY PHYSICIAN Family Medicine
DX: I26.99 Other pulmonary embolism without acute cor pulmonale (principal); I45.2 Bifascicular block; I82.401 Acute embolism and thrombosis of unspecified deep veins of right lower extremity; I44.1 Atrioventricular block, second degree; R09.02 Hypoxemia; R74.01 Elevation of levels of liver transaminase levels; E78.00 Pure hypercholesterolemia, unspecified
CPT/HCPCS: 71275; 80053; 83880; 84484; 85025; 85027; 85610; 85730; 87811; 93005; 93306; 93970; 96365; 99285; Q9967

== ENCOUNTER → 2023-12-25 11:09 | Outpatient (REF) | payer MEDICARE, OTHER, SELFPAY | LOC: RCS 11:09 | PROVIDERS: ATTENDING PHYSICIAN Internal Medicine Cardiovascular Disease; FAMILY PHYSICIAN Family Medicine | DX: Z86.711 Personal history of pulmonary embolism (principal); I51.7 Cardiomegaly | CPT/HCPCS: 93306 ==

== ENCOUNTER → 2024-01-23 08:26 | Outpatient (REF) | payer MEDICARE, OTHER, SELFPAY | LOC: RAD 08:26 | PROVIDERS: ATTENDING PHYSICIAN Nurse Practitioner Family; FAMILY PHYSICIAN Family Medicine | DX: Z86.711 Personal history of pulmonary embolism (principal); I26.99 Other pulmonary embolism without acute cor pulmonale | CPT/HCPCS: 71275; 93970; Q9967 ==

== ENCOUNTER → 2024-03-25 08:23 | Outpatient (REF) | payer MEDICARE, OTHER, SELFPAY | LOC: PAVMRI 08:23 | PROVIDERS: ATTENDING PHYSICIAN Nuclear Medicine Nuclear Cardiology; FAMILY PHYSICIAN Family Medicine | DX: R00.1 Bradycardia, unspecified (principal); R94.31 Abnormal electrocardiogram [ECG] [EKG]; D86.9 Sarcoidosis, unspecified; I26.99 Other pulmonary embolism without acute cor pulmonale; I45.10 Unspecified right bundle-branch block | CPT/HCPCS: 75561; 75565; A9585 ==

== ENCOUNTER → 2024-05-02 12:06 | Outpatient (REF) | payer MEDICARE, OTHER, SELFPAY | LOC: RCS 12:06 | PROVIDERS: ATTENDING PHYSICIAN Nuclear Medicine Nuclear Cardiology; FAMILY PHYSICIAN Family Medicine | DX: R00.1 Bradycardia, unspecified (principal); I42.9 Cardiomyopathy, unspecified | CPT/HCPCS: 93306 ==

== ENCOUNTER 2024-12-12 20:04 | Inpatient (IN) | payer MEDICARE, OTHER, SELFPAY ==
[2024-12-12] VITALS (7 sets, daily range): BP systolic 116–143; BP diastolic 88–102; BMI 28.9
[2024-12-12 18:01] LABS: INR 1.12; PT 14.8 Sec (11.4-14.6)
[2024-12-12 18:02] LABS: APTT 30.1 Sec (23.4-35.0)
--- NOTE | 2024-12-12 18:04 | ED.GENMED ---
History of Present Illness
General
Chief Complaint: Breathing Problem
Time Seen by Provider: 12/12/24 17:39
Nursing documentation reviewed up to this point in time: agreed with
History of Present Illness
History of Present Illness:
74-year-old male presents to the ER for evaluation of shortness of breath. Patient states that he recently returned home from [place] 2 weeks ago. Since returning home he has had difficulty with heavy exertion, experiencing shortness of
breath with exertion. He denies chest pain per se. He denies any cough or cold symptoms. No peripheral edema. No fevers. He does have a prior personal history of pulmonary embolism last year, but is no longer on anticoagulation. He is unsure
of etiology of his blood clots. He states he has been eating and drinking well. He has been trying to lose weight so has modified his diet. He denies any hematuria or blood in his stool. No syncope or trauma. He did recently undergo surgery to
his bilateral eyes, most recently on Sunday.
Past History
Social History
Tobacco: Non-smoker
Personal:
Employment: Employed
Review of Systems
Review of Systems
Allergies reviewed?: Yes
Phy Exam
Physical Exam
Physical Exam:
Patient is awake, alert, mild conversational dyspnea, head is NCAT, PERRL, EOMI mucous membranes moist, conjunctiva pink, heart regular rate and rhythm without murmurs or ectopy, lungs are clear to auscultation without wheezes rales or rhonchi, no
JVD, abdomen is soft and nontender on palpation, extremities without edema, GCS is 15
Scores
Heart Failure Risk
Heart Failure Risk Score: Not Applicable
Course
Orders/Labs/Results
Orders:
Orders
12/12/24 17:30
PTT Urgent
Prothrombin Time Urgent
12/12/24 17:41
Complete Blood Count/With Diff Urgent
Comprehensive Metabolic Panel Urgent
Troponin I Urgent
12/12/24 17:42
CT Chest PE Study Urgent
Comment:
Reason For Exam: dyspnea, h/o PE
12/12/24 18:44
Heparin 7,300 units IV NOW STA
12/12/24 18:45
Heparin 69876 Units/250 ml 25,000 units in 250 ml IV PER PROTOCOL
Weight to be used for heparin protocol in kilograms (kg):: 91.5
Protocol:: DVT/PE
PTT Goal Range to be used:: PTT 73 to 111 seconds
Order type:: Initial
INITIAL Infusion Dose (UNITS/KG/hr) & then follow protocol:: 18 units/kg/hr
Infusion Dose in UNITS/hr & then follow protocol (UNITS/hr):: 1,600
INFUSION RATE in mL/hr & then follow protocol (mL/hr):: 16
For DVT/PE algorithm, re-bolus for low PTT?: No
PTT less than or equal to 64 seconds:: No Re-bolus. Increase by 400 units/hr (+ 4mL/hr)
PTT 64.1 to 72.9 seconds:: No Re-bolus. Increase by 200 units/hr (+ 2mL/hr)
PTT 73 to 111 seconds:: Target Range. No change in rate.
PTT 111.1 to 130.9 seconds:: Decrease rate by 200 units/hr (- 2 mL/hr)
PTT 131 to 199.9 seconds:: HOLD for 1 hr. Then decrease by 300 units/hr (- 3mL/hr)
PTT greater than or equal to 200 seconds:: HOLD for 2 hrs & Notify Provider. Then decrease by 400 units/hr
(- 4mL/hr)
Lab follow-up:: Each change, PTT q6h until 2 consecutive are therapeutic. Then
PTT daily.
12/12/24 18:[address] Non Medication Order As Directed
Physician Order: PTT 6 hours after initial start of Heparin infusion
Above order entered?: Yes
12/12/24 18:59
Consult Interventional Radiology [IRAD CONSULT] Urgent
Consulting Provider: Rashid Vickers
Was physician already notified: Yes
Procedure being ordered, including laterality if applicable: n/a
Acknowledgement that appropriate orders are entered: Yes
Consult Pulmonary [PULMONARY CONSULT] Urgent
Consulting Provider: Pili Somers
Was physician already notified: Yes
Reason for consult: PE
12/13/24 00:45
PTT Urgent
12/13/24 01:00
PTT Stat
Abnormal Lab Results
12/12/24 12/12/24
17:30 17:41
MCH 31.5 H pg
(27.0-31.0)
Absolute Lymphs (auto) 0.8 L 10^3/uL
(1.2-3.4)
Absolute Monos (auto) 0.8 H 10^3/uL
(0.1-0.6)
Lymphocytes % 10.3 L %
(20.5-51.1)
Monocytes % 11.1 H %
(1.7-9.3)
PT 14.8 H Sec
(11.4-14.6)
BUN 21 H mg/dl
(9-20)
Glucose 115 H mg/dl
(70-99)
Total Bilirubin 1.9 H mg/dl
(0.2-1.3)
Troponin I 0.044 H* ng/ml
12/12/24 17:41
12/12/24 17:41
Kidney function preserved, CBC normal
Vital Signs
Initial and Last Documented VS:
Initial Vital Signs
Temp Pulse Resp BP Pulse Ox
98.2 F 90 20 129/90 90
12/12/24 17:12 12/12/24 17:12 12/12/24 17:12 12/12/24 17:12 12/12/24 17:12
Last Documented Vital Signs
Temp Pulse Resp BP Pulse Ox
98.2 F 66 22 138/102 97
12/12/24 17:12 12/12/24 19:00 12/12/24 19:00 12/12/24 19:00 12/12/24 19:00
MDM/Problems Addressed
Differential Diagnosis Includes:
Differential diagnosis to consider but not limited to ACS, pulmonary embolism, pneumonia along with other etiologies considered
Chronic conditions affecting care:
Prior pulmonary embolism
*Radiology
Radiology exam reviewed: preliminary read by ED provider (I independently viewed and interpreted CT of the chest showing bilateral pulmonary emboli. Awaiting formal read for further plan) and radiology read reviewed (To review current presentation
and need for anticoagulation. He would just recommend maintaining patient's current steroid eyedrop regimen. No other concerns for treatment. Saddle PE with evidence of right heart strain)
*Pulse Oximetry
SaO2: 90
Oxygen Mode of Delivery: Room air
Patient hypoxic: yes
Comment: patient was 88% on 2 L nasal cannula at time of my interview, patient titrated up to 5 L nasal cannula with transient improvement. Patient then placed on mid flow with improvement
*EKG
Interpreted by ED Provider?: Yes (I independently viewed and interpreted twelve-lead EKG showing sinus rhythm with first-degree AV block, left axis deviation, right bundle branch block, borderline LVH, rate 73, this is an abnormal tracing without
evidence for acute ischemia, similar to prior from 10/21/2023)
*Senior Client Advisor Interpretation
Rate: normal (I independently viewed and interpreted rhythm strip showing sinus rhythm with first-degree AV block, no ectopy)
*Critical Care Note
Total Time (30-74mins, 75-104mins- exclusive of procedures): See critical care note
Update Note
Update Note:
I discussed with patient and present at bedside need for admission given hypoxia, regardless of additional workup, although I have a very high suspicion that he has recurrent pulmonary emboli. Patient expressed understanding of this. Awaiting
CT chest for dispo
I reviewed CT reading with radiologist, confirming large saddle pulmonary embolism. I then called a PERT alert and reviewed full pt presentation and results with Dr. Alvarez, pulmonary medicine. He was able to review the CT and recommended emergent
consultation with interventional radiology for possible intervention. I reviewed pt information with Dr Vickers, intervention radiology, who is currently reviewing the case. I reviewed patient presentation and current plan with the hospitalist who
accepts patient for admission. IV heparin ordered.
I also reached out to oncall opthalmologist covering for his operative surgeon, Dr Chacon, Dr Rodriguez, to review current presentation and need for anticoagulation. He would just recommend maintaining patient's current steroid eyedrop regimen. No
other concerns for treatment.
1925:IR requesting echo. No CDT tonight. Hospitalist updated
Critical care statement: A total of 37 minutes of critical care time was provided for this patient. This includes management of unstable vital signs, evaluation of the patient at bedside, reviewing the patient's pertinent medical records, discussion
with consultants, review of old EKGs and review of pertinent medical records. This time with separate from time utilized to perform the aforementioned documented procedures
ED Attending Note
-
Portions of this chart may have been created with voice recognition software.� Occasional wrong word or��sound alike� substitutions may have occurred due to the inherent limitations of voice recognition software.
Discharge Plan
Departure
Patient Disposition: Admit
Date of Disposition: 12/12/24
Time of Disposition: 19:19
Presentation/result/management discussed w/ accepting MD/DO: Hospitalist
Discharge Problem:
Pulmonary embolism, Elevated troponin I level
Prescriptions:
No Action
omega-3 fatty acids-fish oil 1 EACH capsule
1 cap PO DAILY
prednisolone acetate 1 % Drops,Suspension
1 drp RIGHT EYE Q2H
Super C Complex 500-500 mg Tablet
1 tab PO DAILY
moxifloxacin 0.5 % Drops
1 drp RIGHT EYE QID
rosuvastatin [Crestor] 10 mg Tablet
10 mg PO DAILY
Referrals:
Maureen Sanders MD [Family Provider, [facility]]
Interventions
Interventions:
*Risk Screen - Suicide Last Done: 12/12/24 17:12
*General Assessment Last Done: 12/12/24 17:12
*ED COVID-19 Vaccine History Last Done: 12/12/24 17:12
ED- Cardiac Assessment Last Done: 12/12/24 17:54
ED- Pulmonary Assessment Last Done: 12/12/24 17:54
Discharge Date and Time
Print Language: MONGOLIAN
[2024-12-12 18:05] LABS: Hematocrit 43.1 % (39.0-52.0); Hemoglobin 14.8 g/dL (13.0-18.0); Mean Corp Hgb Conc. 34.3 g/dL (33.0-37.0); Mean Corpuscular Volume 91.7 fL (80.0-94.0); Nucleated Red Blood Cells % 0 % (-); Platelet Count 131 10^3/uL (130-400); Red Cell Dist. Width 11.9 % (11.5-14.5)
[2024-12-12 18:09] LABS: ALT (SGPT) 32 U/L (0-50); AST (SGOT) 36 U/L (17-59); Albumin 4.3 g/dl (3.5-5.0); Alkaline Phosphatase 62 U/L (38-126); Blood Urea Nitrogen 21 mg/dl (9-20); Calcium 9.4 mg/dl (8.4-10.2); Carbon Dioxide 22 mmol/L (22-30); Chloride 105 mmol/L (98-107); Glucose 115 mg/dl (70-99); Potassium 4.4 mmol/L (3.5-5.1); Sodium 137 mmol/L (135-145); Total Protein 7.8 g/dl (6.3-8.2); eGFR > 60.00
[2024-12-12 18:23] LABS: Troponin I 0.044 ng/ml
[2024-12-12] MEDS: HEPARIN 7300 UNITS IV (19:01)
[2024-12-12] MEDS: HEPARIN 25000 UNITS/250 ML IV (19:02)
--- NOTE | 2024-12-12 19:20 | HPS.HSE ---
Addendum entered and electronically signed by STEVEN Alvarez 12/12/24 22:29:
prob adddendum
# Non occlusive DVT RLE popliteal vein
US venous duplex:
1. NONocclusive RLE DVT involving the popliteal vein
2. NO DVT LEFT LEG
Addendum entered and electronically signed by Twyla Perez MD 12/12/24 21:12:
This is an addendum to the H&P written by Jessica Harding on 12/12/2024. �Patient seen and examined independently with [facility].
74-year-old male past medical history of large pulmonary embolism of right main pulmonary artery with RV strain, sarcoidosis, osteoarthritis, hyperlipidemia, first-degree AV block, presenting for shortness of breath. �Recently returned from [place] 2 weeks ago with difficulty with heavy exertion, shortness of breath. �No cough or cold symptoms or chest pain. �No edema. �No fever.
Recently underwent corneal transplant right eye 4 days ago and yesterday.
He was admitted last year in September for large pulm embolism of right main pulmonary artery with RV strain but has since been taken off of anticoagulation. �He had hypercoagulable workup by hematology which was negative.
Vital signs unremarkable apart from hypoxia requiring 15L oxygen.�
Labs show troponin of 0.044.
CT PE shows saddle pulmonary embolism with extensive extension bilaterally. �There is evidence of right heart strain.
Patient with recurrent submassive pulmonary embolism likely triggered by long car rides but suspect underlying genetic predisposition. �Heparin drip, IR consulted for consideration of thrombolysis but this was deferred for the time being. �Trend
troponins. Pulmonary consulted. �Check venous ultrasound, echocardiogram. �Needs to be on lifelong anticoagulation this time.�
Original Note:
Family Physician
-
Family Physician: Maureen Sanders MD
Chief Complaint
-
Shortness of breath, LINDO, recent travel
History of Present Illness
74-year-old male complaining of shortness of breath over the past 2-1/2 weeks along with dyspnea on exertion over the past few days he reports he and his traveled on November 19 to [place] then to [place] 9-1/2 hours they then traveled
back on December 03 the same distance 9-1/2 hours approximately 9 days ago. He reports his dyspnea on exertion got worse over the past few days. He has history of provoked bilateral leg DVTs with PEs in September 2023 after traveling for 3 weeks in
his camper. He was placed on Eliquis at that time for approximately 6 months. He followed up with [facility] in the spring [address] Thomas states he had coagulopathy workup which was negative. He denies any cancers. He also states he
just had a corneal transplant surgery on Sunday and then repeat yesterday , 12/11/2024 is currently using eyedrops to his right eye. He denies current fever, chills, sore throat, chest pain, palpitations, cough, abdominal pain, nausea,
vomiting, diarrhea, urinary symptoms. He has past medical history of bilateral leg DVT/PE September 2023, HLD, RBBB, sarcoidosis, first-degree AV block, osteoarthritis, corneal transplant right eye
Medical History
Past Medical History
Past Medical History: Reports Other
Additional Past Medical History:
DVT/PE September 2023
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
HLD
RBBB
sarcoidosi
first-degree AV block
osteoarthritis
corneal transplant right eye
Past Surgical History: Reports Other
Additional Past Surgical History:
Right inguinal repair
Left knee replacement
Rotator cuff repair
Social History
Alcohol: Occasional (Drinks twice a week 1 glass of whiskey or wine)
Personal:
Living: With Family
Employment: Retired
Family History
Family History: Not pertinent
Allergies / Home Medications
Allergies reflects when Allergies were last updated in [facility].
Home Medications with original date entered in [facility]
Allergy/Medication List:
Allergies
Allergy/AdvReac Type Severity Reaction Status Date / Time
No Known Allergies Allergy Verified 12/12/24 17:18
Home Medications
omega-3 fatty acids-fish oil 300 mg-1,000 mg capsule 1 cap PO DAILY Supplement 07/28/14
ascorbic acid 500 mg-bioflavonoids 500 mg tablet 1 tab PO DAILY 12/12/24
moxifloxacin 0.5 % eye drops 1 drp RIGHT EYE QID 12/12/24
prednisolone acetate 1 % eye drops,suspension 1 drp RIGHT EYE Q2H 12/12/24
rosuvastatin 10 mg tablet (Crestor) 10 mg PO DAILY 12/12/24
Review of Systems
-
History Source: Patient and Family ( at bedside)
A 12 point ROS was completed and negative except as noted: Yes
Constitutional: Denies Fever or Chills
EENT: Denies Sore Throat or Runny Nose
Respiratory: Reports Trouble Breathing (Shortness of breath LINDO); Denies Cough
Cardiac: Denies Chest Pain, Diaphoresis, Palpitations or Syncope
Abdomen/GI: Denies Abdominal Pain, Nausea, Vomiting, Diarrhea, Constipated or Bloody Stools
: Denies Dysuria, Frequency, Flank Pain, Incontinence or Difficulty Voiding
Musculoskeletal: Denies Joint Pain or Edema
Skin: Denies Itching or Rash
Neurological: Denies Dizzy, Headache or Weakness
Endocrine: Reports No Symptoms
Hematologic/Lymphatic: Reports No Symptoms
Psych: Reports Calm
Physical Exam
Vital Signs
Vital Signs
Temp Pulse Resp BP Pulse Ox
98.2 F 66 22 138/102 97
12/12/24 17:12 12/12/24 19:00 12/12/24 19:00 12/12/24 19:00 12/12/24 19:00
Physical Exam
General: Comfortable and Conversant; No Pain, Fever or Chills
HEENT: NormoCephalic, Anicteric, Moist mucous membranes, PERRLA, Di Giorgio Conjunctivae and No Ptosis
Respiratory: Clear; No Wheezes, Rales or Rhonchi
Cardiac: Regular Rhythm; No Murmur, Rub, Gallop or Peripheral Edema
GI: Soft, Non Tender, Normal Bowel Sounds and No Hepatosplenomegaly
Rectal: Deferred by Provider
Genito-urinary: Deferred by me
Musculoskeletal: No Clubbing, No Cyanosis and No Edema
Skin: Warm and Dry; No Rash or Jaundice
Neuro: AO x 3, No Motor Deficits, Nonfocal/grossly intact, Cranial Nerves Intact and No Sensory Deficits; No Slurred Speech, Facial Droop, Tremors or Sedated
Psych: Calm
Laboratory Results
-
12/12/24 17:41
12/12/24 17:41
Laboratory Results
PT 14.8 Sec (11.4-14.6) H 12/12/24 17:30
INR 1.12 12/12/24 17:30
APTT 30.1 Sec (23.4-35.0) 12/12/24 17:30
Total Bilirubin 1.9 mg/dl (0.2-1.3) H 12/12/24 17:41
AST 36 U/L (17-59) 12/12/24 17:41
ALT 32 U/L (0-50) 12/12/24 17:41
Alkaline Phosphatase 62 U/L (38-126) 12/12/24 17:41
Troponin I 0.044 ng/ml H* 12/12/24 17:41
Impression/Plan
-
Impression/plan:
Admit to IMU
#Saddle PE with extensive extension bilaterally with right heart strain provoked by recent car ride versus underlying genetic predisposition
Acute hypoxic resp failure 2/2 to saddle pe
History of Large volume PE right main pulmonary artery with RV strain 10/19/2023 was on Eliquis x 6 months
Had eval for coagulopathy workup spring 2023 Dr. Thomas
87% room air , 97% 15 liters midflow
- IV heparin drip
- Check bilateral venous leg ultrasounds
- Consult IR
- Consult Pulmonary
- Repeat 2D echo - nursing esters and emulsifiers supervisor made aware for echo in a.m. [facility] cardiology Dr. HUSSAIN Faith will make sure it is read
CT PE study:. Saddle pulmonary embolism with extensive extension bilaterally as described. CT evidence for right heart strain.
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
Continue prednisone 1 drop right eye every 2 hours while awake, moxifloxacin 1 drop right eye 4 times daily
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
#History of RBBB
#History of first-degree AV block
#History of sarcoidosis
#Osteoarthritis
Hold ibuprofen
HLD
Continue statin
Full code
[2024-12-12] MEDS: PRED FORTE 1% EYE DROPS 1 DROP RIGHT EYE (21:36)
[2024-12-12] MEDS: NON-FORMULARY ITEM 1 DROP RIGHT EYE (21:58)
[2024-12-12] MEDS: PRED FORTE 1% EYE DROPS RIGHT EYE (22:40)
[2024-12-12] MEDS: CRESTOR 10 MG PO (22:44)
--- NOTE | 2024-12-12 22:55 | PTCARENOTE ---
Rec'd pt from ED RN on heparin gtt at 16, see worklist. Pt denies any pain/discomfort/dyspnea. On 15L MFNC, 97% SaO2. Titrated to 10L, tolerating at 95%. Pt stood at bedside to void and change his shorts with assistance of staff and his .
Maintained >94%, continued to deny complaints. Medications given per MAR. Pt educated on use of call rosenbaum, rosenbaum placed within reach. Pt certifies that he will call with any needs. Care ongoing.
[2024-12-13] VITALS (13 sets, daily range): BP systolic 107–136; BP diastolic 59–100
[2024-12-13] MEDS: PRED FORTE 1% EYE DROPS RIGHT EYE ×4 (00:48→23:00)
[2024-12-13 01:58] LABS: Troponin I 0.050 ng/ml
[2024-12-13 02:03] LABS: APTT > 200 Sec (23.4-35.0)
--- NOTE | 2024-12-13 07:13 | CON.PUL ---
Consultation
Consultation Request
Date/Time Consultation Requested: 12/12/2024
Date/Time Consultation Performed: 12/13/2024
Medical History
-
Chief Complaint: Shortness of breath
History of Present Illness:
Patient is a very pleasant 74-year-old gentleman who presented to the emergency room with a couple of weeks of shortness of breath. Reported travel to [place] in October and then again in [place] which involved close to 9 hours of travel.
Most recent about 10 days ago. Patient reports that he has had a prior lower extremity clot and pulmonary embolism in September 2023 after traveling for 3 weeks in his camper. He was treated with anticoagulation for about 6 months time and follows up
with [facility]. Coagulation panel eventually was unremarkable and patient was taken off anticoagulation. During this visit, patient had a repeat CT PE study which was positive for large submassive pulmonary embolism with evidence
of right heart strain and elevated troponin. PERT alert were activated and I reviewed the imaging from home. In view of RV strain and elevated biomarker and hypoxia, recommended evaluation by IR service for catheter directed therapies. IR service
evaluated the imaging and felt that RV strain was not significant and recommended continuing anticoagulation and pursue echocardiogram for further evaluation. In view of recurrent pulmonary embolism, pulmonary consultation was requested for further
input.
Past Medical History
Past Medical History: Reports Other
Additional Past Medical History:
DVT/PE September 2023
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
HLD
RBBB
sarcoidosi
first-degree AV block
osteoarthritis
corneal transplant right eye
Past Surgical History: Reports Other
Additional Past Surgical History:
Right inguinal repair
Left knee replacement
Rotator cuff repair
Social History
Alcohol: Occasional (Drinks twice a week 1 glass of whiskey or wine)
Personal:
Living: With Family
Employment: Retired
Family History
Family History: Not pertinent
Allergies / Home Medications
Allergies / Home Medications
Allergies
Allergy/AdvReac Type Severity Reaction Status Date / Time
No Known Allergies Allergy Verified 12/12/24 17:18
Home Medications
�Medication �Instructions �Recorded �Confirmed �Last Taken �Type
omega-3 fatty acids-fish oil 300 1 cap PO DAILY Supplement 07/28/14 12/12/24 12/12/24 History
mg-1,000 mg capsule
ascorbic acid 500 mg-bioflavonoids 1 tab PO DAILY 12/12/24 12/12/24 Unknown History
500 mg tablet
moxifloxacin 0.5 % eye drops 1 drp RIGHT EYE QID 12/12/24 12/12/24 12/12/24 History
prednisolone acetate 1 % eye 1 drp RIGHT EYE Q2H 12/12/24 12/12/24 12/12/24 History
drops,suspension
rosuvastatin 10 mg tablet (Crestor) 10 mg PO DAILY 12/12/24 12/12/24 12/12/24 History
Review of Systems
-
Hematologic/Lymphatic: Other (All 14 systems reviewed and negative except as stated above in the history of present illness.)
Vitals / Labs / Diagnostic Testing
Vital Signs
Temp Pulse Resp BP Pulse Ox
98.5 F 51 17 128/86 96
12/13/24 03:46 12/13/24 06:00 12/13/24 06:00 12/13/24 06:00 12/13/24 06:22
Lab Data
12/12/24 17:41
12/12/24 17:41
Laboratory Results
12/12/24 12/13/24 12/13/24
17:30 00:45 01:15
PT 14.8 H
INR 1.12
APTT 30.1 Cancelled > 200 H*
Diagnostic Testing:
Physical Exam
-
HEENT: Normocephalic
Cardiovascular: S1/S2
Respiratory: Clear and Non-Labored Respirations
GI: Soft and Non Distended
Neurology: Awake and Alert
Skin: Warm
General: Comfortable
Assessment
-
#1. Submassive pulmonary embolism with DVT, recurrent
- This is patient's second episode of VTE. Both events appear provoked by long travel.
- Right heart strain noted on CT chest however subsequent ECHO is unremarkable, minimally elevated troponin
- PERT alert was activated 12/12, IR evaluation was reviewed. Recommendation was to await echocardiogram, which appears reassuring without evidence of RV failure
- Continue anticoagulation with IV heparin, anticipate switching to oral anticoagulants in next 24 hours
- Continue O2 support, keep saturation above 90%
- Considering this is a second episode of submassive pulmonary embolism, recommend lifelong anticoagulation.
- Outpatient follow-up with pulmonary clinic. Patient is established with [facility] pulmonary clinic and follows Dr. Cho
- Resume outpatient follow-up with hematology service
#2. Acute hypoxic respiratory failure.
- Secondary to submassive pulmonary embolism. Currently saturating 90% on supplemental oxygen, 6 ltr, no respiratory distress, respiratory rate around 25.
- Anticipate ongoing improvement with anticoagulation
- Assess for home oxygen requirement prior to discharge
Other medical diagnoses:
- Mild ascending aortic dilation, 4.1 cm
- H/o Sarcoidosis
Total time spent on this consultation/encounter _65__ minutes which includes review of history, physical exam, medications, laboratory data, personal review of imaging, extensive review of outpatient records, discussion with care team and
respiratory therapy.
Data:
LE US 11/2024: 1. Nonocclusive right lower extremity DVT involving the popliteal vein.
2. No evidence of deep venous thrombosis in the left lower extremity.
CT-PE 11/2024: 1. Saddle pulmonary embolism with extensive extension bilaterally as described. CT evidence for right heart strain.
ECHO 11/2024: Normal left ventricular size and systolic function. No regional wall motion
abnormalities are seen. LV ejection fraction is 55-60% by visual assessment.
Mild concentric left ventricular hypertrophy. Normal diastolic function.
Normal right ventricular size and function.
Mild tricuspid regurgitation. Estimated pulmonary artery pressure of 25-30 mmHg
assuming a right atrial pressure of 3 mmHg.
Mildly dilated ascending aorta measuring 4.1 cm.
Cardiac MRI 02/2024: 1. Small amount of intramural enhancement in the inferoseptal wall of the left ventricular myocardial base. Diagnostic possibilities are (1) mild cardiac sarcoidosis or (2) a small amount of myocardial fibrosis or scarring.
2. Global systolic LV function: Moderately impaired.
3. Global systolic RV function: Normal.
4. Valvular disease: None.
5. Severe mediastinal and bilateral hilar lymphadenopathy consistent with SARCOIDOSIS.
[2024-12-13] MEDS: PRED FORTE 1% EYE DROPS 1 DROP RIGHT EYE ×8 (07:33→20:56)
[2024-12-13] MEDS: NON-FORMULARY ITEM 1 DROP RIGHT EYE ×4 (07:34→20:57)
[2024-12-13 07:39] LABS: Troponin I 0.031 ng/ml
--- NOTE | 2024-12-13 07:42 | W.PN.HOSP.TC ---
Today's Communication/Plan
-
cont hep gtt
wean O2 supplementation as tolerated
Assessment / Plan
Assessment / Plan
Physical Exam
General: no acute distress, appears comfortable
HEENT: NormoCephalic, Anicteric, Moist mucous membranes
Respiratory: Clear; No Wheezes, Rales or Rhonchi
Cardiac: Regular Rhythm; No Murmur, Rub, Gallop or Peripheral Edema
GI: Soft, Non Tender, Normal Bowel Sounds and No Hepatosplenomegaly
Musculoskeletal: No Clubbing, No Cyanosis and No Edema
Skin: Warm and Dry; No Rash or Jaundice
Neuro: AO x 3 conversant coherent
Psych: Calm
74M Hx PE sarcoidosis HLD recent Rt eye corneal transplant here with new onset PE saddle embolus with associate RLE DVT
#Saddle PE with extensive extension bilaterally with right heart strain provoked by recent car ride versus underlying genetic predisposition
#RLE DVT as noted on Venous Duplex
Acute hypoxic resp failure 2/2 to saddle pe
History of Large volume PE right main pulmonary artery with RV strain 10/19/2023 was on Eliquis x 6 months
Had eval for coagulopathy workup spring 2023 Dr. Thomas
- IV heparin gtt
-weaning down on midflow
- Consult IR appreciated
- Consult Pulmonary appreciated
- CT PE study appreciated Saddle pulmonary embolism and evidence right heart strain.
- ECHO repeated 12/13 results pending
-Cardio eval requested
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
Continue prednisone 1 drop right eye every 2 hours while awake, moxifloxacin 1 drop right eye 4 times daily
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
#History of RBBB
#History of first-degree AV block
#Sinus Bradycardia
intermittent HR 40s, asymptomatic
rn cardiac rehab
cardio eval as above
#History of sarcoidosis
#Osteoarthritis
Hold ibuprofen
Tylenol prn
HLD
Continue statin
Full code
Discussed with patient and patient's Lloyd
I spent a total of 50 minutes with the patient or on the floor. More than 50% of this time involved counseling and coordination of care.
Anticipated Discharge: 24 - 48 hours
Subjective/Interval History
-
Date of Service: December 13, 2024
No acute distress, overall reports feeling well, sitting up comfortably in chair. Lloyd present during evaluation. Breathing improved, weaning down midflow. Denies pain
Objective Data
-
Labs:
Laboratory Results
12/13/24 12/13/24 12/13/24
00:45 01:15 10:00
APTT Cancelled > 200 H* Pending
Vital Signs:
Vital Signs
Temp Pulse Resp BP Pulse Ox
98.3 F 51 17 128/86 96
12/13/24 07:26 12/13/24 06:00 12/13/24 06:00 12/13/24 06:00 12/13/24 06:22
I&O
12/12/24 12/13/24 12/14/24
06:59 06:59 06:59
Output Total 550 / 550
Balance -550 / -550
[2024-12-13 10:52] LABS: Hematocrit 39.9 % (39.0-52.0); Hemoglobin 13.7 g/dL (13.0-18.0); Mean Corp Hgb Conc. 34.3 g/dL (33.0-37.0); Mean Corpuscular Volume 89.1 fL (80.0-94.0); Platelet Count 132 10^3/uL (130-400); Red Cell Dist. Width 12.1 % (11.5-14.5)
[2024-12-13 10:59] LABS: APTT 79.2 Sec (23.4-35.0)
[2024-12-13 10:59] LABS: Blood Urea Nitrogen 21 mg/dl (9-20); Carbon Dioxide 23 mmol/L (22-30); Chloride 108 mmol/L (98-107); Estimated Creatinine Clearance 59 ml/min; Glucose 127 mg/dl (70-99); Potassium 4.2 mmol/L (3.5-5.1); Sodium 139 mmol/L (135-145); eGFR > 60.00
[2024-12-13 11:20] LABS: Troponin I 0.022 ng/ml
--- NOTE | 2024-12-13 11:25 | CM ---
CM reviewed chart and met with pt and bedside in IMU. Pt lives with in 2 story home, 1-3 NAREN[address] depending on entrance.
Has first floor full bath, full flight of steps to second floor bedroom.
Independent with ADLs, personal care and ambulation at baseline. No assistive devices although does have walker from prior surgery.
Still drives.
Currently on Heparin drip and O2, does not have home O2.
No hx VN or SNF.
PCP: Maureen Sanders
Pharmacy: [facility] [place], [facility] for mail order
Anticipate discharge home, CM will continue to follow for any discharge planning needs.
[2024-12-13 11:37] LABS: Calcium 9.3 mg/dl (8.4-10.2)
--- NOTE | 2024-12-13 13:27 | CON.CAR ---
Consultation
Consultation Request
Date/Time Consultation Requested: December 13, 2024
Date/Time Consultation Performed: December 13, 2024
Requesting Provider: Dr Vuong
Performing Provider: Dr De La Torre
Reason for Consultation: Bradycardia
Medical History
-
Chief Complaint: Short of breath
History of Present Illness:
Patient is a pleasant 74-year-old male with a past medical history significant for DVT/PE 2023 with pulm infarct, dyslipidemia, hypothyroidism, hilar adenopathy, sarcoidosis, renal calculi, osteoarthritis, bifascicular block, asymptomatic
bradycardia who presented with a couple week hx of dyspnea. He had traveled to [place] and then to [place] with about 9 hrs of travel. He was found to have a large submassive PE with evidence of right heart strain and elevated troponin. IR
evaluated and it was felt that the RV strain was not significant enough for catheter based therapy at that time. He continue with anticoagulation. Cardiology was consulted for bradycardia which is a chronic finding for the patient.
He also had recent corneal transplant and required a second procedure.
He was previously treated for DVT and PE in September 2023 with pulm infarct. He was taken off anticoagulation after 6 months. He has longstanding history of bifascicular block with asymptomatic bradycardia. He remains active without symptoms with
appropriate HR response. He had recent monitor with avg HR 51, first degree AV block, some junctional escape beats and frequent short pauses. He was last seen by Dr De La Torre August 2024. He did not meet criteria for PPM at that time. He had recent
cardiac MR that showed only minimal scarring. Echo Apr 2024 showed preserved EF and mild TR. He currently denies complaints.
Past Medical History:
DVT/PE 2023 with pulm infarct
Bradycardia
RBBB
Sarcoidosis
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
Hyperlipidemia
Past Medical History
Past Surgical History: Other (Right hernia repair, left shoulder surgery, left total knee replacement)
Social History
Tobacco: Non-Smoker (He smoked socially in college)
Alcohol: Occasional
Drug: None
Personal:
Living: With Family
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
Family History
Family History: CAD (Father had MS in his 50s)
Allergies / Home Medications
Allergy/AdvReac Type Severity Reaction Status Date / Time
No Known Allergies Allergy Verified 12/12/24 17:18
�Medication �Instructions �Recorded �Confirmed �Type
omega-3 fatty acids-fish oil 300 1 cap PO DAILY Supplement 07/28/14 12/12/24 History
mg-1,000 mg capsule
ascorbic acid 500 mg-bioflavonoids 1 tab PO DAILY Supplement 12/12/24 12/12/24 History
500 mg tablet
moxifloxacin 0.5 % eye drops 1 drp RIGHT EYE QID Eye Condition 12/12/24 12/12/24 History
prednisolone acetate 1 % eye 1 drp RIGHT EYE Q2H Eye Condition 12/12/24 12/12/24 History
drops,suspension
rosuvastatin 10 mg tablet (Crestor) 10 mg PO DAILY High Cholesterol 12/12/24 12/12/24 History
Review of Systems
-
History Source: Patient
All other systems: Negative unless noted
Respiratory: Trouble Breathing
Physical Exam
Vital Signs
Temp Pulse Resp BP Pulse Ox
97.7 F 49 20 133/89 96
12/13/24 11:00 12/13/24 12:00 12/13/24 12:00 12/13/24 12:00 12/13/24 12:21
Physical examination:
General: No acute distress, AAOX3
Neck: Negative JVD
Heart: Regular, Negative S3 positive S1/S2, Negative S4, No murmur
Lungs: CTA b/l, negative wheezes/rales/rhonchi
Abd: Positive BS, NT/ND, neg rebound/rigidity/guarding
Ext: Negative cyanosis/clubbing/edema
Neuro: nonfocal
Lab Results
12/13/24 10:41
12/13/24 10:41
Troponin I 0.022 ng/ml D 12/13/24 10:39
Impression / Plan
-
.
Impression:
Recurrent PE, submassive PE
Troponin related to PE, peak 0.050
RV strain related to acute PE
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
Bradycardia
RBBB with first degree AV block
Sarcoidosis
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
Hyperlipidemia
Plan:
Continue IV Heparin and tx of PE as per commutator presser.
Bradycardia is stable and not new. Pt has had multiple monitors and known first degree AV block and RBBB and short pauses. He does not meet criteria for PPM.
Avoid AV luh blocking agents.
Recent echo with evidence of RV strain related to acute PE.
Consider repeat limited echo prior to d/c to reeval RV following tx of acute PE
Recent cardiac MR without evidence of cardiac involvement of known sarcoidosis
Cont support care of his corneal transplant with eye drops.
Discussed with nursing and with at bedside.
Data Reviewed
-
EKG: Tracing Personally Visualized and interpreted
Radiology: Report Reviewed by me
MRI: Report Reviewed by me
Medical Tests (Nuc Med, Echo etc): Image Personally Visualized and interpreted
Labs: Labs Reviewed by me
Old Records: Reviewed
[2024-12-13] MEDS: HEPARIN 25000 UNITS/250 ML IV (13:31)
--- NOTE | 2024-12-13 13:34 | PTCARENOTE ---
Patient is out of bed, able to walk to the bathroom with nurses assistance. Pulse ox 88% on room air today, 94% on 2 liters oxygen. Heart rate drops into the 40s at times, asymptomatic. Notified Dr. Vuong and cardiology consulted. Patient on Heparin
drip, compliant with plan of care.
[2024-12-13 18:01] LABS: APTT 75.5 Sec (23.4-35.0)
[2024-12-13] MEDS: CRESTOR 10 MG PO (20:57)
[2024-12-14] VITALS (12 sets, daily range): BP systolic 119–141; BP diastolic 70–104
[2024-12-14] MEDS: PRED FORTE 1% EYE DROPS RIGHT EYE ×4 (01:00→23:39)
--- NOTE | 2024-12-14 02:15 | PTCARENOTE ---
Pt has been SB/1st degree/BBB/Pauses throughout shift. HR has been going down into the 30's (lowest 32) with pause of 3.65. Pt was sleeping and is asymptomatic. Pt evaluated by Dr De La Torre yesterday per report. They are aware of him. His CA is .36 also
which is not a change from dayshift. BP is stable. Vickie HARRIS TT'd and made aware of above. Will continue to monitor.
[2024-12-14 03:50] LABS: Hematocrit 38.6 % (39.0-52.0); Hemoglobin 13.3 g/dL (13.0-18.0); Mean Corp Hgb Conc. 34.5 g/dL (33.0-37.0); Mean Corpuscular Volume 89.4 fL (80.0-94.0); Platelet Count 132 10^3/uL (130-400); Red Cell Dist. Width 11.9 % (11.5-14.5)
[2024-12-14 04:10] LABS: APTT 80.0 Sec (23.4-35.0)
[2024-12-14 04:41] LABS: Blood Urea Nitrogen 20 mg/dl (9-20); Calcium 8.7 mg/dl (8.4-10.2); Carbon Dioxide 21 mmol/L (22-30); Chloride 109 mmol/L (98-107); Estimated Creatinine Clearance 65 ml/min; Glucose 99 mg/dl (70-99); Magnesium 2.0 mg/dl (1.6-2.3); Potassium 4.4 mmol/L (3.5-5.1); Sodium 136 mmol/L (135-145); eGFR > 60.00
--- NOTE | 2024-12-14 05:25 | PTCARENOTE ---
CM continues to intermittently alarm low HR - lowest 29 with occasional pauses. Pt remains asymptomatic. Rest of VSS. AM PTT 80.0. Heparin gtt continues infusing at 12ml/hr. Call rosenbaum remains within reach. Will continue to monitor.
--- NOTE | 2024-12-14 07:53 | W.PN.HOSP.TC ---
Today's Communication/Plan
-
wean O2 as tolerated
hep gtt to transition to Eliquis tonight
PT/OT eval tomorrw
Assessment / Plan
Assessment / Plan
Physical Exam
General: no acute distress, appears comfortable
HEENT: NormoCephalic, Anicteric, Moist mucous membranes
Respiratory: Clear; No Wheezes, Rales or Rhonchi
Cardiac: Regular Rhythm; No Murmur, Rub, Gallop or Peripheral Edema
GI: Soft, Non Tender, Normal Bowel Sounds and No Hepatosplenomegaly
Musculoskeletal: No Clubbing, No Cyanosis and No Edema
Skin: Warm and Dry; No Rash or Jaundice
Neuro: AO x 3 conversant coherent
Psych: Calm
74M Hx PE sarcoidosis HLD recent Rt eye corneal transplant here with new onset PE saddle embolus with associate RLE DVT
#Saddle PE with extensive extension bilaterally with right heart strain provoked by recent car ride versus underlying genetic predisposition
#RLE DVT as noted on Venous Duplex
Acute hypoxic resp failure 2/2 to saddle pe
History of Large volume PE right main pulmonary artery with RV strain 10/19/2023 was on Eliquis x 6 months
Had eval for coagulopathy workup spring 2023 Dr. Thomas
-weaning down on oxygen supplementation
- Consult IR appreciated
- Consult Pulmonary appreciated hep gtt transitioned to Eliquis 12/15 evening
- PT/OT eval to started Sun/tomorrow
- CT PE study appreciated Saddle pulmonary embolism and evidence right heart strain.
- ECHO repeated 12/13 results pending
-Cardio eval appreciated repeat limited ECHO prior to discharge to follow up on right heart strain
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
Continue prednisone 1 drop right eye every 2 hours while awake, moxifloxacin 1 drop right eye 4 times daily
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
#History of RBBB
#History of first-degree AV block
#Sinus Bradycardia
intermittent HR 40s, asymptomatic
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
cardio eval appreciated
#History of sarcoidosis
#Osteoarthritis
Hold ibuprofen
Tylenol prn
HLD
Continue statin
Full code
Discussed with patient and patient's Lloyd
I spent a total of 45 minutes with the patient or on the floor. More than 50% of this time involved counseling and coordination of care.
Anticipated Discharge: 24 - 48 hours
Subjective/Interval History
-
Date of Service: December 14, 2024
No acute distress, sitting up comfortably in chair. Weaning down on oxygen supplementation. Overall reports feeling well. Lloyd present during evaluation.
Objective Data
-
Labs:
Laboratory Results
12/14/24 12/14/24
03:32 03:45
WBC 6.7
Hgb 13.3
Hct 38.6 L
Plt Count 132
APTT 80.0 H
Sodium 136
Potassium 4.4
Chloride 109 H
Carbon Dioxide 21 L
BUN 20
Creatinine 1.0
Glucose 99
Calcium 8.7
Vital Signs:
Vital Signs
Temp Pulse Resp BP Pulse Ox
98.0 F 47 15 134/88 97
12/14/24 03:15 12/14/24 06:00 12/14/24 06:00 12/14/24 06:00 12/14/24 06:00
I&O
12/13/24 12/14/24 12/15/24
06:59 06:59 06:59
Intake Total 728 / 728
Output Total 550 / 550 750 / 750
Balance -550 / -550 - / -
[2024-12-14] MEDS: PRED FORTE 1% EYE DROPS 1 DROP RIGHT EYE ×8 (08:27→21:50)
[2024-12-14] MEDS: NON-FORMULARY ITEM 1 DROP RIGHT EYE ×4 (08:27→21:50)
--- NOTE | 2024-12-14 08:59 | W.PN.PUL3 ---
Today's Communication / Plan
-
- Continue to wean oxygen as tolerated
- Transition to Eliquis 10 mg twice daily starting tonight
- Assess for home oxygen need prior to discharge
Assessment
-
Patient is a very pleasant 74-year-old gentleman who presented to the emergency room with a couple of weeks of shortness of breath. Reported travel to [place] in October and then again in [place] which involved close to 9 hours of travel.
Most recent about 10 days ago. Patient reports that he has had a prior lower extremity clot and pulmonary embolism in September 2023 after traveling for 3 weeks in his camper. He was treated with anticoagulation for about 6 months time and follows up
with [place] [facility] service. Coagulation panel eventually was unremarkable and patient was taken off anticoagulation. During this visit, patient had a repeat CT PE study which was positive for large submassive pulmonary embolism with evidence
of right heart strain and elevated troponin. PERT alert were activated and I reviewed the imaging from home. In view of RV strain and elevated biomarker and hypoxia, recommended evaluation by IR service for catheter directed therapies. IR service
evaluated the imaging and felt that RV strain was not significant and recommended continuing anticoagulation and pursue echocardiogram for further evaluation. In view of recurrent pulmonary embolism, pulmonary consultation was requested for further
input.
#1. Submassive pulmonary embolism with DVT, recurrent
- This is patient's second episode of VTE. Both events appear provoked by long travel.
- Right heart strain noted on CT chest however subsequent ECHO is unremarkable, minimally elevated troponin
- PERT alert was activated 12/12, IR evaluation was reviewed. Recommendation was to await echocardiogram, which appears reassuring without evidence of RV failure
- Continue O2 support, keep saturation above 90%
- Considering this is a second episode of submassive pulmonary embolism, recommend lifelong anticoagulation.
- Outpatient follow-up with pulmonary clinic. Patient is established with [facility] pulmonary clinic and follows Dr. Cho
- Resume outpatient follow-up with hematology service
- Doing well on IV Heparin. Transition to Eliquis 10 mg BID starting tonight.
#2. Acute hypoxic respiratory failure.
- Secondary to submassive pulmonary embolism. Currently saturating 96% on supplemental oxygen, 4 ltr, no respiratory distress, respiratory rate around 21.
- Anticipate ongoing improvement with anticoagulation
- Assess for home oxygen requirement prior to discharge
Other medical diagnoses:
- Mild ascending aortic dilation, 4.1 cm
- H/o Sarcoidosis
Total time spent on this consultation/encounter _45__ minutes which includes review of history, physical exam, medications, laboratory data, personal review of imaging, extensive review of outpatient records, discussion with care team and
respiratory therapy.
Data:
LE US 11/2024: 1. Nonocclusive right lower extremity DVT involving the popliteal vein.
2. No evidence of deep venous thrombosis in the left lower extremity.
CT-PE 11/2024: 1. Saddle pulmonary embolism with extensive extension bilaterally as described. CT evidence for right heart strain.
ECHO 11/2024: Normal left ventricular size and systolic function. No regional wall motion
abnormalities are seen. LV ejection fraction is 55-60% by visual assessment.
Mild concentric left ventricular hypertrophy. Normal diastolic function.
Normal right ventricular size and function.
Mild tricuspid regurgitation. Estimated pulmonary artery pressure of 25-30 mmHg
assuming a right atrial pressure of 3 mmHg.
Mildly dilated ascending aorta measuring 4.1 cm.
Cardiac MRI 02/2024: 1. Small amount of intramural enhancement in the inferoseptal wall of the left ventricular myocardial base. Diagnostic possibilities are (1) mild cardiac sarcoidosis or (2) a small amount of myocardial fibrosis or scarring.
2. Global systolic LV function: Moderately impaired.
3. Global systolic RV function: Normal.
4. Valvular disease: None.
5. Severe mediastinal and bilateral hilar lymphadenopathy consistent with SARCOIDOSIS.
Subjective Data
-
Date of Service:
Date of Service: December 14, 2024
Subjective:
Patient comfortably sitting in bed, in no acute distress.
Review of Systems
Genitourinary: Other (All 14 systems reviewed and negative except as stated above in the history of present illness.)
Objective Data
Data Reviewed
Vital Signs / I&O / Oxygen:
Vital Signs
Temp Pulse Resp BP Pulse Ox
98.0 F 48 15 139/87 95
12/14/24 03:15 12/14/24 08:00 12/14/24 08:00 12/14/24 08:00 12/14/24 08:00
Intake and Output
12/13/24 12/14/24 12/15/24
06:59 06:59 06:59
Intake Total 728 / 728
Output Total 550 / 550 750 / 750
Balance -550 / -550 -
SaO2 95
Nasal Cannula flow liters per 4
minute
Physical Exam
General: Comfortable
HEENT: Normocephalic
Cardiovascular: S1-S2
Respiratory: Clear and Non-Labored Respirations
GI: Soft and Non Distended
Neurology: Awake and Alert
Skin: Warm
Labs/Micro/Reports
Lab Data
12/14/24 03:32
12/14/24 03:32
Laboratory Results
12/13/24 12/13/24 12/14/24
10:39 17:36 03:45
APTT 79.2 H 75.5 H 80.0 H
--- NOTE | 2024-12-14 10:19 | CM ---
I met with pt and at bedside. Pt told me plan is to stop Heparin and transition to Eliquis tonight, hoping for discharge tomorrow. Pt's mentioned they have a trip planned to [place] in December, already paid for,they do have travel
insurance but she wanted to know what physician would give them a medical note. I suggested they ask the hospitalist, beef skinner or mattress packer but ultimately may need to reach out to PCP. told me they did call PCP prior to coming to the ED
and she is affiliated with so would be able to acces records.
CM will continue to follow for discharge planning needs.
--- NOTE | 2024-12-14 11:25 | W.PN.CARDCBS ---
Today's Communication / Plan
-
Echo prior to d/c
Cont IV heparin
Outpt cardiac follow up
Impression / Plan
-
.
Impression:
Recurrent PE, submassive PE
Troponin related to PE, peak 0.050
RV strain related to acute PE
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
Bradycardia
RBBB with first degree AV block
Sarcoidosis
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
Hyperlipidemia
Plan:
Bradycardia is stable and not new. Pt has had multiple monitors and known first degree AV block and RBBB and short pauses. He does not meet criteria for PPM.
Cont to avoid AV lhu blocking agents.
Continue IV Heparin and tx of PE as per pulmonary
Recent echo with evidence of RV strain related to acute PE.
Consider repeat limited echo prior to d/c to reeval RV following tx of acute PE
Recent cardiac MR without evidence of cardiac involvement of known sarcoidosis
Cont support care of his corneal transplant with eye drops.
Discussed with at bedside.
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
Subjective
Date of Service: December 14, 2024
Pt seen and examined. No complaints. No chest pain or shortness of breath.
Objective
Labs:
12/14/24 03:32
12/14/24 03:32
Labs
Hgb 13.3 g/dL (13.0-18.0) 12/14/24 03:32
Hct 38.6 % (39.0-52.0) L 12/14/24 03:32
Plt Count 132 10^3/uL (130-400) 12/14/24 03:32
PT 14.8 Sec (11.4-14.6) H 12/12/24 17:30
INR 1.12 12/12/24 17:30
APTT 80.0 Sec (23.4-35.0) H 12/14/24 03:45
Sodium 136 mmol/L (135-145) 12/14/24 03:32
Potassium 4.4 mmol/L (3.5-5.1) 12/14/24 03:32
BUN 20 mg/dl (9-20) 12/14/24 03:32
Creatinine 1.0 mg/dL (0.7-1.3) 12/14/24 03:32
Glucose 99 mg/dl (70-99) 12/14/24 03:32
Troponins
12/12/24 12/13/24 12/13/24
17:41 01:15 07:02
Troponin I 0.044 H* 0.050 H* 0.031 D
12/13/24
10:39
Troponin I 0.022 D
Vital Signs and I&O:
Vital Signs
Temp Pulse Resp BP Pulse Ox
97.9 F 48 15 139/87 95
12/14/24 07:00 12/14/24 08:00 12/14/24 08:00 12/14/24 08:00 12/14/24 08:00
Vital Signs
Temp Pulse Resp BP Pulse Ox
97.9 F 48 15 139/87 95
12/14/24 07:00 12/14/24 08:00 12/14/24 08:00 12/14/24 08:00 12/14/24 08:00
Intake & Output
12/12/24 12/13/24 12/14/24 12/15/24
06:59 06:59 06:59 06:59
Intake Total 728 / 728
Output Total 550 / 550 750 / 750
Balance -550 / -550 -
Physical Exam
Physical Exam
General: No acute distress, AAOX3
Neck: Negative JVD
Heart: Regular, Negative S3 positive S1/S2, Negative S4, No murmur
Lungs: CTA b/l, negative wheezes/rales/rhonchi
Abd: Positive BS, NT/ND, neg rebound/rigidity/guarding
Ext: Negative cyanosis/clubbing/edema
Neuro: nonfocal
--- NOTE | 2024-12-14 15:12 | PTCARENOTE ---
Rec'd pt this AM. therapeutic on hep drip. Will transition to jhoan sesay, education provided. Pt on 2L NC. Sat 91-97% variable with movement. OOB to chair. reports feeling much better. spouse at bedside
[2024-12-14] MEDS: ELIQUIS 10 MG PO (19:57)
[2024-12-14] MEDS: CRESTOR 10 MG PO (21:50)
[2024-12-15] VITALS: BP 108/58
[2024-12-15] MEDS: PRED FORTE 1% EYE DROPS RIGHT EYE ×2 (00:24→03:51)
--- NOTE | 2024-12-15 01:09 | PTCARENOTE ---
assumed care of patient from giacomo RN. Pt aaox3. Sinus geovany on the monitor with BBB and first degree HB. SpO2 93% on 2L NC. PO Eliquis administered and Heparin gtt discontinued. Hygiene completed. Pt resting in bed with call rosenbaum in reach.
[2024-12-15 02:00] VITALS: BP 139/84
[2024-12-15] MEDS: PRED FORTE 1% EYE DROPS 1 DROP RIGHT EYE ×6 (05:52→15:47)
[2024-12-15 06:42] LABS: Hematocrit 37.1 % (39.0-52.0); Hemoglobin 12.8 g/dL (13.0-18.0); Mean Corp Hgb Conc. 34.5 g/dL (33.0-37.0); Mean Corpuscular Volume 89.2 fL (80.0-94.0); Platelet Count 137 10^3/uL (130-400); Red Cell Dist. Width 11.9 % (11.5-14.5)
[2024-12-15 06:46] LABS: Blood Urea Nitrogen 17 mg/dl (9-20); Calcium 9.1 mg/dl (8.4-10.2); Carbon Dioxide 23 mmol/L (22-30); Chloride 108 mmol/L (98-107); Estimated Creatinine Clearance 72 ml/min; Glucose 98 mg/dl (70-99); Magnesium 2.1 mg/dl (1.6-2.3); Potassium 4.3 mmol/L (3.5-5.1); Sodium 136 mmol/L (135-145); eGFR > 60.00
--- NOTE | 2024-12-15 08:16 | W.PN.HOSP.TC ---
Addendum entered and electronically signed by Saleem Martel MD 12/17/24 09:20:
Non-Ischemic myocardial injury
Original Note:
Today's Communication/Plan
-
Discharge today
Assessment / Plan
Assessment / Plan
Physical Exam
General: no acute distress, appears comfortable
HEENT: Normocephalic, Moist mucous membranes
Respiratory: Clear to Auscultation Bilaterally
Cardiac: Regular Rhythm; S1 and S2.
GI: Soft, Non Tender, Normal Bowel Sounds
Musculoskeletal: No Cyanosis and No Edema
Skin: Warm and Dry
Neuro: AAO x 3 conversant coherent
Psych: Calm
Assessment/Plan
74 y/o male with past medical history of PE sarcoidosis HLD recent Rt eye corneal transplant here with new onset PE saddle embolus with associate RLE DVT
#Saddle PE with extensive extension bilaterally with right heart strain provoked by recent car ride versus underlying genetic predisposition
#Submassive pulmonary embolism with DVT, recurrent -- provoked by long travel?
#RLE DVT as noted on Venous Duplex
#Acute hypoxic respiratory failure - RESOLVED - was secondary to saddle pulmonary embolism
#History of Large volume PE right main pulmonary artery with RV strain in 2023 -- was on Eliquis x 6 months
#Had eval for coagulopathy workup spring [address] Thomas
- Now on room air, does not need home oxygen
- Consult Pulmonary appreciated hep gtt transitioned to Eliquis 12/15 evening
- PT/OT eval to started Mon/tomorrow
- CT PE study appreciated Saddle pulmonary embolism and evidence right heart strain, but echocardiogram showed mild RV dysfunction, moderate TR and pulmonary hypertension
- Cardio eval appreciated
- Since this is a second episode of submassive pulmonary embolism, lifelong anticoagulation is recommended
- Follow-up with [facility] pulmonary Dr. Pereira
#Right eye corneal transplant 12/08 then repeat on 12/11/[address] Beth Chacon
- Continue prednisone 1 drop right eye every 2 hours while awake, moxifloxacin 1 drop right eye 4 times daily
- I called on 12/15/[address] patient's sharepoint application architect [address]. Beth Chacon and updated her on patient's medical conditions and management, including that he will be on Eliquis going forward
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
#History of RBBB
#History of first-degree AV block
#History of Short Pauses in Cardiac Rhythm
#Sinus Bradycardia
- Bradycardia is chronic, as per cardiology
- Intermittent HR 40s, asymptomatic
- Per cardiology, patient does not meet criteria for PPM
- Cardiology evaluation appreciated
#Mild ascending aortic dilation, 4.1 cm
#History of sarcoidosis
- Recently cardiac MR was done, and was without evidence of cardiac involvement of known sarcoidosis
#Osteoarthritis
Hold ibuprofen
Tylenol prn
#Hyperlipidemia
Continue statin
Full code
Discussed with patient and patient's Lloyd
More than 30 minutes spent in discharge including
Final examination of the patient
Summarizing hospital stay
Instructions for continuing care to all relevant caregivers
Preparation of discharge records, prescriptions, and referral forms
Total time spent (in minutes): 42
Anticipated Discharge: Today
Subjective/Interval History
-
Date of Service: December 15, 2024
Patient was seen and examined. He reported feeling much better compared to when he came in, and denied any new significant symptoms or complaints.
Objective Data
-
Labs:
Laboratory Results
12/15/24
06:01
WBC 5.4
Hgb 12.8 L
Hct 37.1 L
Plt Count 137
Sodium 136
Potassium 4.3
Chloride 108 H
Carbon Dioxide 23
BUN 17
Creatinine 0.9
Glucose 98
Calcium 9.1
Vital Signs:
Vital Signs
Temp Pulse Resp BP Pulse Ox
98 F 45 14 139/84 91
12/15/24 07:51 12/15/24 04:00 12/14/24 10:00 12/15/24 02:00 12/15/24 04:00
I&O
12/14/24 12/15/24 12/16/24
06:59 06:59 06:59
Intake Total 728 / 728
Output Total 750 / 750
Balance -
[2024-12-15] MEDS: NON-FORMULARY ITEM 1 DROP RIGHT EYE ×2 (08:24→12:39)
[2024-12-15] MEDS: ELIQUIS 10 MG PO (08:24)
[2024-12-15 09:49] VITALS: BP 109/96
[2024-12-15 10:09] VITALS: BP 109/96; PULSE 52; O2SAT 96
--- NOTE | 2024-12-15 10:10 | W.PN.PUL3 ---
Today's Communication / Plan
-
Continue Eliquis per protocol
Lifelong anticoagulation recommended
Gradual increase physical activity as tolerated. No heavy lifting or strenuous exercise for the next 4 to 6 weeks discussed with patient.
Outpatient follow-up with Dr. Pereira in 4 weeks
To repeat echocardiogram today
Okay to discharge from my perspective-sign off
Assessment
-
Patient is a very pleasant 74-year-old gentleman who presented to the emergency room with a couple of weeks of shortness of breath. Reported travel to [place] in October and then again in [place] which involved close to 9 hours of travel.
Most recent about 10 days ago. Patient reports that he has had a prior lower extremity clot and pulmonary embolism in September 2023 after traveling for 3 weeks in his camper. He was treated with anticoagulation for about 6 months time and follows up
with [facility] service. Coagulation panel eventually was unremarkable and patient was taken off anticoagulation. During this visit, patient had a repeat CT PE study which was positive for large submassive pulmonary embolism with evidence
of right heart strain and elevated troponin. PERT alert were activated and I reviewed the imaging from home. In view of RV strain and elevated biomarker and hypoxia, recommended evaluation by IR service for catheter directed therapies. IR service
evaluated the imaging and felt that RV strain was not significant and recommended continuing anticoagulation and pursue echocardiogram for further evaluation. In view of recurrent pulmonary embolism, pulmonary consultation was requested for further
input.
#1. Submassive pulmonary embolism with DVT, recurrent
- This is patient's second episode of VTE. Both events appear provoked by long travel.
- Right heart strain noted on CT chest however subsequent ECHO showed mild RV dysfunction, moderate TR and pulmonary hypertension, minimally elevated troponin.
- PERT alert was activated 12/12, IR evaluation was reviewed. Asymptomatic this morning. Able to ambulate to the restroom without symptoms.
-Oxygen supplementation has been weaned off.
-Cardiology to repeat echocardiogram today.
- Considering this is a second episode of submassive pulmonary embolism, recommend lifelong anticoagulation.
- Outpatient follow-up with pulmonary clinic. Patient is established with [facility] pulmonary clinic and follows Dr. Pereira
- Resume outpatient follow-up with hematology service at some point. Will be an ongoing discussion. 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
- Doing well on IV Heparin. Transition to Eliquis 10 mg BID starting tonight.
#2. Acute hypoxic respiratory failure.
- Resolved. Oxygen has been weaned off 12/15/2024.
Other medical diagnoses:
- Mild ascending aortic dilation, 4.1 cm
- H/o Sarcoidosis
Total time spent on this consultation/encounter _45__ minutes which includes review of history, physical exam, medications, laboratory data, personal review of imaging, extensive review of outpatient records, discussion with care team and
respiratory therapy.
Data:
LE US 11/2024: 1. Nonocclusive right lower extremity DVT involving the popliteal vein.
2. No evidence of deep venous thrombosis in the left lower extremity.
CT-PE 11/2024: 1. Saddle pulmonary embolism with extensive extension bilaterally as described. CT evidence for right heart strain.
ECHO 11/2024: Normal left ventricular size and systolic function. No regional wall motion
abnormalities are seen. LV ejection fraction is 55-60% by visual assessment.
Mild concentric left ventricular hypertrophy. Normal diastolic function.
Normal right ventricular size and function.
Mild tricuspid regurgitation. Estimated pulmonary artery pressure of 25-30 mmHg
assuming a right atrial pressure of 3 mmHg.
Mildly dilated ascending aorta measuring 4.1 cm.
Cardiac MRI 02/2024: 1. Small amount of intramural enhancement in the inferoseptal wall of the left ventricular myocardial base. Diagnostic possibilities are (1) mild cardiac sarcoidosis or (2) a small amount of myocardial fibrosis or scarring.
2. Global systolic LV function: Moderately impaired.
3. Global systolic RV function: Normal.
4. Valvular disease: None.
5. Severe mediastinal and bilateral hilar lymphadenopathy consistent with SARCOIDOSIS.
Subjective Data
-
Date of Service:
Date of Service: December 15, 2024
Chief Complaint: Pulmonary Follow Up (Submassive pulmonary embolism)
Subjective:
Asymptomatic this morning
Was able to ambulate-oxygen was weaned off
Denies dizziness or chest tightness
Denies shortness of breath walking to the bathroom
Objective Data
Data Reviewed
Vital Signs / I&O / Oxygen:
Vital Signs
Temp Pulse Resp BP Pulse Ox
98 F 45 14 139/84 91
12/15/24 07:51 12/15/24 04:00 12/14/24 10:00 12/15/24 02:00 12/15/24 04:00
Intake and Output
12/14/24 12/15/24 12/16/24
06:59 06:59 06:59
Intake Total 728 / 728
Output Total 750 / 750
Balance -
SaO2 91
Nasal Cannula flow liters per 1
minute
Physical Exam
General: Comfortable
HEENT: Normocephalic
Cardiovascular: S1-S2
Respiratory: Clear and Non-Labored Respirations
GI: Soft and Non Distended
Neurology: Awake and Alert
Skin: Warm
Labs/Micro/Reports
Lab Data
12/15/24 06:01
12/15/24 06:01
[2024-12-15 10:11] VITALS: BP 109/69; PULSE 53; O2SAT 93
--- NOTE | 2024-12-15 10:16 | PTOTSP ---
pt currently requires supervision to no assistance to complete simple ADLs, functional transfers, ambulation. pt required cues for deep breaths with activity and monitoring of O2 with activity. pt demonstrates no acute OT needs at this time, will
sign off.
--- NOTE | 2024-12-15 11:02 | CM ---
Initial Assessment Completed By Flora
Patient lives with his in a 2 story house, 2 bathroom on the 2nd, one on the 1st floor. Has a cane and walker from the past. Had been in outpatient PT in the past.
PCP: Maureen Cornejo
Pharmacy: [facility]- #[phone]
Patient has transportation home.
Patient wondered if he had a copay with Aj and if so, would like Case Management to see if there is a coupon like he had last year. BRIEN Hines will look into this.
PLAN: Home No Needs
[2024-12-15 12:39] VITALS: BP 138/87
--- NOTE | 2024-12-15 12:39 | CM ---
Following up on Patient. Patient asked to petty the Eliquis medication. BRIEN Broderickkia had Hospitalist call in the Medication to [facility] [place] and it was $292.00.
BRIEN Hines had Eliquis medication 30 free day card that was applied via calling the Pharmacist so it is set for 30 day free. Patient/ was informed as well as Medical Attending.
PLAN: Home No Needs
--- NOTE | 2024-12-15 15:14 | W.PN.CARDCBS ---
Addendum entered and electronically signed by Mathew De La Torre, 12/15/24 15:19:
.
Echo with slight improvement in RV and Pulm pressure
Check echo in one month
Follow up in 6 wks
Original Note:
Today's Communication / Plan
-
Echo today
Outpt follow up.
Impression / Plan
-
.
Impression:
Recurrent PE, submassive PE
Troponin related to PE, peak 0.050
RV strain related to acute PE
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
Bradycardia
RBBB with first degree AV block
Sarcoidosis
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
Hyperlipidemia
Plan:
Bradycardia is stable and not new. Pt has had multiple monitors and known first degree AV block and RBBB and short pauses. He does not meet criteria for PPM.
Cont to avoid AV luh blocking agents.
Transitioned to oral anticoagulation with tx of PE as per pulmonary
Recent echo with evidence of RV strain related to acute PE.
Repeat limited echo with slight improvement in RV size and Pulm pressure
Recent cardiac MR without evidence of cardiac involvement of known sarcoidosis
Cont support care of his corneal transplant with eye drops.
Discussed with at bedside and primary service
Please recall if needed.
Progress Note - Reliability Technologist
Subjective
Date of Service: December 15, 2024
Pt seen and examined. No complaints. No chest pain or shortness of breath.
Objective
Labs:
12/15/24 06:01
12/15/24 06:01
Labs
Hgb 12.8 g/dL (13.0-18.0) L 12/15/24 06:01
Hct 37.1 % (39.0-52.0) L 12/15/24 06:01
Plt Count 137 10^3/uL (130-400) 12/15/24 06:01
PT 14.8 Sec (11.4-14.6) H 12/12/24 17:30
INR 1.12 12/12/24 17:30
APTT 80.0 Sec (23.4-35.0) H 12/14/24 03:45
Sodium 136 mmol/L (135-145) 12/15/24 06:01
Potassium 4.3 mmol/L (3.5-5.1) 12/15/24 06:01
BUN 17 mg/dl (9-20) 12/15/24 06:01
Creatinine 0.9 mg/dL (0.7-1.3) 12/15/24 06:01
Glucose 98 mg/dl (70-99) 12/15/24 06:01
Troponins
12/12/24 12/13/24 12/13/24
17:41 01:15 07:02
Troponin I 0.044 H* 0.050 H* 0.031 D
12/13/24
10:39
Troponin I 0.022 D
Vital Signs and I&O:
Vital Signs
Temp Pulse Resp BP Pulse Ox
98.3 F 58 14 138/87 92
12/15/24 15:11 12/15/24 14:00 12/14/24 10:00 12/15/24 12:39 12/15/24 12:39
Vital Signs
Temp Pulse Resp BP Pulse Ox
98.3 F 58 14 138/87 92
12/15/24 15:11 12/15/24 14:00 12/14/24 10:00 12/15/24 12:39 12/15/24 12:39
Intake & Output
12/13/24 12/14/24 12/15/24 12/16/24
06:59 06:59 06:59 06:59
Intake Total 728 / 728
Output Total 550 / 550 750 / 750
Balance -550 / -550 -22 / -22
Physical Exam
Physical Exam
General: No acute distress, AAOX3
Neck: Negative JVD
Heart: Regular, Negative S3 positive S1/S2, Negative S4, No murmur
Lungs: CTA b/l, negative wheezes/rales/rhonchi
Abd: Positive BS, NT/ND, neg rebound/rigidity/guarding
Ext: Negative cyanosis/clubbing/edema
Neuro: nonfocal
--- NOTE | 2024-12-15 16:07 | W.DCSUMMARY ---
Discharge Summary
Discharge Data
Date of Admission: 12/12/24
Date of Discharge: 12/15/24
Total time spent discharging patient (in min): 42
-
Pending Results: No
Hospital Course
74-year-old male with past medical history of recent corneal transplant of right eye, large pulmonary embolism of right main pulmonary artery with right ventricular strain (was on anticoagulation which was stopped after a few months), sarcoidosis,
osteoarthritis, hyperlipidemia and first-degree AV block, presented with shortness of breath. Patient had recently returned from [place] 2 weeks prior to presentation and had difficulty with heavy exertion, shortness of breath. Patient had
significant hypoxia on presentation. CT PE study showed saddle pulmonary embolism with extensive extension bilaterally with evidence of right heart strain. Patient was started on Heparin Drip and pulmonary was consulted. Echocardiogram was done and
showed unremarkable right ventricle. Ultrasound of patient's lower extremities showed nonocclusive right lower extremity DVT involving the popliteal vein. Patient had bradycardia for which cardiology was consulted. Cardiology mentioned that
patient's bradycardia was stable and not new; it was noted that patient had multiple monitors and known first degree AV block and RBBB and short pauses, and that patient does not meet criteria for PPM. Patient's oxygen requirements significantly
improved, and he was transitioned to Eliquis. Patient was saturating oxygen well on room air. Patient's outpatient gardener florist also stated that they were okay with patient getting anticoagulation. Patient's repeat echocardiogram showed slight
improvement in right ventricular and pulmonary artery pressure, he would need to have a repeat echo checked in one month from discharge, and follow-up with cardiology in 6 weeks. Patient was determined not to need any supplemental oxygen on
discharge. He was feeling well and stable for discharge.
Discharge Plan
-
Patient Disposition: Home (Routine Discharge)
Discharge Diagnosis/Procedures: #Saddle Pulmonary Embolism with extensive extension bilaterally with right heart strain provoked by recent car ride versus underlying genetic predisposition
#Submassive pulmonary embolism with DVT, recurrent -- provoked by long travel?
#RLE DVT as noted on Venous Duplex
#Acute hypoxic respiratory failure - RESOLVED - was secondary to saddle pulmonary embolism
#History of Large volume PE right main pulmonary artery with RV strain in 2023 -- was on Eliquis x 6 months
#Had evaluation for coagulopathy workup spring [address] Thomas
#Right eye corneal transplant 12/08 then repeat on 12/11/[address] Beth Chacon
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
#History of RBBB
#History of first-degree AV block
#History of Short Pauses in Cardiac Rhythm
#Sinus Bradycardia
#Mild ascending aortic dilation, 4.1 cm
#History of sarcoidosis
#Osteoarthritis
#Hyperlipidemia

CT Chest (as per radiologist's report):
'Technique: Contrast-enhanced CT of the chest with thin section, early arterial phase images according to the pulmonary embolism protocol. Patient received nonionic contrast. Sagittal and coronal reconstructed images are obtained. 3-D reconstruction
was performed with an independent workstation to better delineate the clinically suspected abnormality on CT of the pulmonary arteries. Automatic exposure control radiation dose reduction technology was utilized.
Findings:
Saddle pulmonary embolism extending into all bilateral lobar and most bilateral segmental pulmonary arteries, as well as right-sided subsegmental pulmonary arteries. RV/LV ratio approximately 3:2.
Branching Order Level of the Most Proximal Level of Pulmonary Embolus: Main pulmonary artery.
No thoracic aortic aneurysm. No pulmonary nodules, areas of airspace disease, pleural or pericardial effusions, or enlarged lymph nodes in the thorax. Heart is not enlarged.
Visualized portion of the upper abdomen demonstrates a 7 mm nonobstructing upper pole left renal calculus.
IMPRESSION:
1. Saddle pulmonary embolism with extensive extension bilaterally as described. CT evidence for right heart strain.'

Lower Extremity Bilateral Venous Ultrasound:
'IMPRESSION:
1. Nonocclusive right lower extremity DVT involving the popliteal vein.
2. No evidence of deep venous thrombosis in the left lower extremity.'

Echocardiogram 12/13/24 Summary (as per cosmetics machine operator's report):
'1. Normal left ventricular chamber size, myocardial thickness and systolic function, ejection fraction 55-60%.
2. Right ventricule is mildly dilated with reduce right ventricular function. Right atrium is dilated. Inferior vena cava is dilated and does not collapse.
3. Moderate tricuspid regurgitation with severe PHTN with PASP 72 mmHg.
4. Mildly dilated aortic root.
5. Compared to a previous echo from Apr 2024, there is now RV dilation reduced RV function and TR,pulmonary artery pressures are worse.'

Echocardiogram 12/15/24 Summary (as per cosmetics machine operator's report):
' 1. Normal left ventricular size and function with EF 55 to 60%.
2. Mildly dilated right ventricle with mildly reduced right ventricular function.
3. Mild to moderate tricuspid regurgitation with pulmonary artery pressure 51 mmHg.
4. Compared to previous full study echo from December 13, 2024, right ventricle dilatation is slightly less, TR is slightly less and pulmonary artery pressure was 72 mmHg and is now 51 mmHg.'
Condition: Good
Activity: Other activity
Additional Activity: Gradual increase physical activity as tolerated. No heavy lifting or strenuous exercise for the next 4 to 6 weeks.
Blood Work: CBC, CMP and Serum Magnesium with your primary care provider's office within 7 days
Activity Restrictions/Additional Instructions:
You will need another echocardiogram recheck 4 weeks from now (as per cosmetics machine operator Dr. De La Torre's recommended) -- please contact Dr. De La Torre's office to set that up.
Avoid taking atrioventricular (AV) luh blocking agents (discuss this with your primary care doctor)
Given that this is your second episode of submassive pulmonary embolism, therefore lifelong anticoagulation is recommended.
Follow-up (with your gardener florist Dr. Beth Chacon) in the next few days.
Instructions: Pulmonary embolism (blood clot in the lung), Apixaban, Pulmonary embolism (DC)
Referrals:
Mathew De La Torre DO [Active, Cardiology] - in six weeks
Referral Note: Hospitalization follow-up for saddle pulmonary embolism, also bradycardia follow-up
Maureen Sanders MD [Family Provider, Family Practice] - in less than 1 week
Carson Tapia MD [Active, Pulmonary Medicine] - in four to six weeks
Referral Note: 6MWT
Alphonso Thomas MD [Active, Hematology / Oncology] - in four to six weeks
Referral Note: Recurrent Venous Thromboembolism
Prescriptions:
New
Eliquis 5 mg tablet
See Rx Instructions .ROUTE .COMPLEX Qty: 30 4RF
Rx Instructions:
10 mg BID through 12/21/24 morning, followed by 5 mg BID
Continued
omega-3 fatty acids-fish oil 1 EACH capsule
1 cap PO DAILY
prednisolone acetate 1 % Drops,Suspension
1 drp RIGHT EYE Q2H
ascorbic acid-bioflavonoids 500-500 mg Tablet
1 tab PO DAILY
moxifloxacin 0.5 % Drops
1 drp RIGHT EYE QID
rosuvastatin [Crestor] 10 mg Tablet
10 mg PO DAILY
Discharge Orders:
Discharge Patient (As Directed); Ordered 12/15/24
Ordered By: Saleem Martel
Discharge Date and Time
Discharge Date/Time: 12/15/24 16:45
Print Language: LAO
--- NOTE | 2024-12-15 16:37 | PN.CDI ---
CDI
- -
CDI:
Physician Documentation Request
Admit Date: 12/12/24 20:04
Dear Doctor Delonte,
Please review the following and provide your response in the progress notes.
Clinical Indicators:
Pt admitted for Saddle PE with extensive extension bilaterally with right heart strain, RLE DVT, and Acute hypoxic resp failure 2/2 to saddle pe.
12/15 Cardiology: ' Troponin related to PE, peak 0.050.'
Laboratory Tests
12/12/24 12/13/24 12/13/24
17:41 01:15 07:02
Troponin I 0.044 H* 0.050 H* 0.031 D
Based on the above, could you clarify in the progress notes, the appropriate diagnosis, if significant, that supports the above Lab abnormalities and additional evaluation, monitoring and/or treatment rendered:
Non-Ischemic myocardial injury
Insignificant abnormal lab values
Other
Use of terms such as suspected, likely, concern for, or probable (associated with a specific diagnosis that is being evaluated, monitored, or treated as if it exists) are acceptable and can be coded in the inpatient setting, when documented at the
time of discharge.
Thank you,
Lana Ghotra RN, BSN
CDI Specialist
[place] [facility]
Please use your independent medical judgment in providing your response.
--- NOTE | 2024-12-17 10:43 | CM ---
Call from [facility] re: Patient
BRIEN Hines received a call from [facility] who is out visiting patient. The reason is that patient used Eliquis coupon so received 30 days free of this medication. However, because the the patient has to take more Eliquis from 12/15 to 12/21, the pharmacy
only have him some of his whole dose.
BRIEN Hines called the pharmacy [facility] on [address] @[phone] who said that the coupon is only for one part of his medication and that the rest is not covered, and that another coupon cannot be used for the remaining amount. In the end, the patient
has to pay his 'deductible' of $292 (not a copay) in order to obtain the rest of his medication.
The patient may have to pay this after the 30 day Eliquis runs out anyway. [facility] is going to encourage the patient to talk to the machine sizer tomorrow to see if they have samples.
End Note
== END 2024-12-15 16:45 | disposition home or self-care (01) | DRG 175 ==
LOC: IMU 20:04
PROVIDERS: Internal Medicine; ADMITTING PHYSICIAN Hospitalist; ATTENDING PHYSICIAN Hospitalist; CONSULT PHYSICIAN Internal Medicine; CONSULT PHYSICIAN Nuclear Medicine Nuclear Cardiology; EMERGENCY PHYSICIAN Emergency Medicine; FAMILY PHYSICIAN Family Medicine
DX: I26.92 Saddle embolus of pulmonary artery without acute cor pulmonale (principal); J96.01 Acute respiratory failure with hypoxia; I82.431 Acute embolism and thrombosis of right popliteal vein; I5A Non-ischemic myocardial injury (non-traumatic); E03.9 Hypothyroidism, unspecified; D86.9 Sarcoidosis, unspecified; E78.00 Pure hypercholesterolemia, unspecified; I07.1 Rheumatic tricuspid insufficiency; I44.0 Atrioventricular block, first degree; I45.10 Unspecified right bundle-branch block; Z96.652 Presence of left artificial knee joint; Z94.7 Corneal transplant status; Z87.891 Personal history of nicotine dependence; Z82.49 Family history of ischemic heart disease and other diseases of the circulatory system; Z79.01 Long term (current) use of anticoagulants; Z79.899 Other long term (current) drug therapy; I77.810 Thoracic aortic ectasia
CPT/HCPCS: 71275; 80048; 80053; 83735; 84100; 84484; 85025; 85027; 85610; 85730; 93005; 93306; 93308; 93321; 93325; 93970; 96365; 96366; 97162; 97166; 99291; Q9967

== ENCOUNTER → 2025-01-06 13:44 | Outpatient (REF) | payer MEDICARE, OTHER, SELFPAY | LOC: RCS 13:44 | PROVIDERS: ATTENDING PHYSICIAN Nuclear Medicine Nuclear Cardiology; FAMILY PHYSICIAN Family Medicine | DX: I26.92 Saddle embolus of pulmonary artery without acute cor pulmonale (principal); I51.7 Cardiomegaly; R79.89 Other specified abnormal findings of blood chemistry | CPT/HCPCS: 93308; 93321; 93325 ==